=== PATIENT | female | born 1940 | race Two or more races ===

== ENCOUNTER 2019-05-14 08:48 | Inpatient (IN) | payer MEDICARE ==
[2019-05-14] MEDS ORDERED: IPRATROPIUM-ALBUTEROL 3 ML NEB INHALATION STA ×2 (08:54→11:33)
[2019-05-14] MEDS ORDERED: SODIUM CHLORIDE 0.9% 1,000 ML IV STA (08:54)
[2019-05-14] MEDS ORDERED: SODIUM CHLORIDE 0.9% 500 ML 500 ML IV STA ×2 (08:54→11:49)
--- NOTE | 2019-05-14 09:04 | ED ---
SOB HPI - General Stated Complaint: BUBBA Time Seen by Provider: 05/14/19 08:48 Source: patient, EMS, RN notes reviewed, old records reviewed Mode of arrival: EMS - History of Present Illness Initial Comments: This is a 78-year-old female history of COPD and recent diagnosis of lung cancer who presents by EMS with complaints of shortness of breath this started last evening and has gotten progressively worse. She also complains of cough with brown phlegm and pain everywhere. No overt fevers chills or sweats she states she's had decreased oral intake and feels very thirsty also. No other modifying factors at this time the patient is state that she get minimal relief with the nebulizer treatment given by paramedics. MD Complaint: shortness of breath, cough - Related Data Home Medications Medication Instructions Recorded Confirmed Acetaminophen [Tylenol Extra 1,000 mg PO Q4H PRN 05/14/19 05/14/19 Strength] Aspirin [Adult Low Dose Aspirin EC] 81 mg PO DAILY 05/14/19 05/14/19 Atorvastatin [Lipitor] 80 mg PO DAILY 05/14/19 05/14/19 Budesonide-Formot 160-4.5 Mcg 1 puff INHALATION RT-BID 05/14/19 05/14/19 [Symbicort 160-4.5 Mcg Inhaler] Calcium Carb-Vit D 250Mg-125Un 1 tab PO BID 05/14/19 05/14/19 [Oscal 250+D] HYDROcodone/APAP 5-325MG [[place] 1 tab PO BID PRN 05/14/19 05/14/19 5-325] Ipratropium-Albuterol Nebulize 3 ml INHALATION RT-TID 05/14/19 05/14/19 [Duoneb 0.5 mg-3 mg/3 ml Soln] Metoprolol Tartrate [Lopressor] 12.5 mg PO BID 05/14/19 05/14/19 Potassium Chloride ER [K-Dur 10] 10 meq PO DAILY 05/14/19 05/14/19 Sodium Bicarbonate Tab 650 mg PO BID 05/14/19 05/14/19 Torsemide [Demadex] 20 mg PO DAILY 05/14/19 05/14/19 guaiFENesin [Mucinex] 1,200 mg PO BID 05/14/19 05/14/19 Allergies Allergy/AdvReac Type Severity Reaction Status Date / Time No Known Allergies Allergy Verified 05/14/19 09:48 Review of Systems ROS Statement: Those systems with pertinent positive or pertinent negative responses have been documented in the HPI. ROS Other: All systems not noted in ROS Statement are negative. General Exam - General Exam Comments Initial Comments: This is a well-developed asthenic appearing female who is awake and alert oriented 3 Limitations: physical limitation General appearance: alert, anxious, in distress Head exam: Present: atraumatic, normocephalic, normal inspection Eye exam: Present: normal appearance, PERRL, EOMI. Absent: scleral icterus, conjunctival injection, periorbital swelling ENT exam: Present: mucous membranes dry Neck exam: Present: normal inspection, full ROM, other (No stridor JVD or bruits). Absent: tenderness, meningismus, lymphadenopathy Respiratory exam: Present: wheezes, decreased breath sounds. Absent: respiratory distress, rales, rhonchi, stridor Cardiovascular Exam: Present: regular rate, normal rhythm, normal heart sounds. Absent: systolic murmur, diastolic murmur, rubs, gallop, clicks GI/Abdominal exam: Present: soft, normal bowel sounds. Absent: distended, tenderness, guarding, rebound, rigid Extremities exam: Present: normal inspection, full ROM, normal capillary refill. Absent: tenderness, pedal edema, joint swelling, calf tenderness Back exam: Present: normal inspection Neurological exam: Present: alert, oriented X3, CN II-XII intact Psychiatric exam: Present: normal affect, normal mood Skin exam: Present: warm, dry, intact, normal color. Absent: rash Course Vital Signs 05/14/19 05/14/19 05/14/19 09:04 09:05 09:15 Temperature Pulse Rate 130 H 133 H 130 H Respiratory 24 Rate Blood Pressure O2 Sat by Pulse 90 L Oximetry 05/14/19 05/14/19 05/14/19 09:19 09:22 09:30 Temperature 98.9 F Pulse Rate 133 H 134 H Respiratory 26 H 26 H 24 Rate Blood Pressure 143/98 142/98 O2 Sat by Pulse 89 L 90 L Oximetry Medical Decision Making - Lab Data Result diagrams: 05/14/19 09:15 05/14/19 09:15 Lab Results 05/14/19 05/14/19 05/14/19 Range/Units 09:15 09:15 09:15 WBC 20.9 H (3.8-10.6) k/uL RBC 3.63 L (3.80-5.40) m/uL Hgb 9.9 L (11.4-16.0) gm/dL Hct 31.2 L (34.0-46.0) % MCV 86.0 (80.0-100.0) fL MCH 27.4 (25.0-35.0) pg MCHC 31.8 (31.0-37.0) g/dL RDW 17.8 H (11.5-15.5) % Plt Count 255 (150-450) k/uL Neutrophils % 78 % Lymphocytes % 16 % Monocytes % 4 % Eosinophils % 1 % Basophils % 0 % Neutrophils # 16.2 H (1.3-7.7) k/uL Lymphocytes # 3.4 (1.0-4.8) k/uL Monocytes # 0.8 (0-1.0) k/uL Eosinophils # 0.2 (0-0.7) k/uL Basophils # 0.0 (0-0.2) k/uL Poikilocytosis Slight Anisocytosis Slight PT (9.0-12.0) sec INR (<1.2) APTT (22.0-30.0) sec Sodium 135 L (137-145) mmol/L Potassium 4.7 (3.5-5.1) mmol/L Chloride 96 L (98-107) mmol/L Carbon Dioxide 25 (22-30) mmol/L Anion Gap 14 mmol/L BUN 82 H (7-17) mg/dL Creatinine 1.50 H (0.52-1.04) mg/dL Est GFR (CKD-EPI)AfAm 38 (>60 ml/min/1.73 sqM) Est GFR (CKD-EPI)NonAf 33 (>60 ml/min/1.73 sqM) Glucose 100 H (74-99) mg/dL Calcium 9.3 (8.4-10.2) mg/dL Magnesium 2.4 H (1.6-2.3) mg/dL Total Bilirubin 0.9 (0.2-1.3) mg/dL AST 79 H (14-36) U/L ALT 70 H (9-52) U/L Alkaline Phosphatase 83 (38-126) U/L Troponin I (0.000-0.034) ng/mL NT-Pro-B Natriuret Pep 3690 pg/mL Total Protein 6.2 L (6.3-8.2) g/dL Albumin 3.1 L (3.5-5.0) g/dL 05/14/19 05/14/19 Range/Units 09:15 09:15 WBC (3.8-10.6) k/uL RBC (3.80-5.40) m/uL Hgb (11.4-16.0) gm/dL Hct (34.0-46.0) % MCV (80.0-100.0) fL MCH (25.0-35.0) pg MCHC (31.0-37.0) g/dL RDW (11.5-15.5) % Plt Count (150-450) k/uL Neutrophils % % Lymphocytes % % Monocytes % % Eosinophils % % Basophils % % Neutrophils # (1.3-7.7) k/uL Lymphocytes # (1.0-4.8) k/uL Monocytes # (0-1.0) k/uL Eosinophils # (0-0.7) k/uL Basophils # (0-0.2) k/uL Poikilocytosis Anisocytosis PT 10.4 (9.0-12.0) sec INR 1.0 (<1.2) APTT 20.8 L (22.0-30.0) sec Sodium (137-145) mmol/L Potassium (3.5-5.1) mmol/L Chloride (98-107) mmol/L Carbon Dioxide (22-30) mmol/L Anion Gap mmol/L BUN (7-17) mg/dL Creatinine (0.52-1.04) mg/dL Est GFR (CKD-EPI)AfAm (>60 ml/min/1.73 sqM) Est GFR (CKD-EPI)NonAf (>60 ml/min/1.73 sqM) Glucose (74-99) mg/dL Calcium (8.4-10.2) mg/dL Magnesium (1.6-2.3) mg/dL Total Bilirubin (0.2-1.3) mg/dL AST (14-36) U/L ALT (9-52) U/L Alkaline Phosphatase (38-126) U/L Troponin I 0.237 H* (0.000-0.034) ng/mL NT-Pro-B Natriuret Pep pg/mL Total Protein (6.3-8.2) g/dL Albumin (3.5-5.0) g/dL - EKG Data -: EKG Interpreted by Me (Sinus tachycardia rate of 135 appear interval 134 QRS 80 QT since QTC ) Critical Care Time Critical Care Time: Yes Critical Care Time: 31 minutes of critical care time which includes initial presentation with history physical labs x-rays multiple reevaluation the patient discussed with patient family regarding the findings review of old charting that was available though there was some delay. Discussed with Dr. Cardozo admission orders and documentation of the above Disposition Clinical Impression: Adult respiratory distress syndrome, Cancer of left lung, CHF (congestive heart failure), Acute kidney injury, Elevated troponin Disposition: ADMITTED IP TO THIS [facility] Condition: Serious Referrals: None,Stated [Primary Care Provider] - 1-2 days
[2019-05-14 09:37] LABS: Anisocytosis Slight; Basophils % (A) 0 %; Eosinophils # (A) 0.2 k/uL (0-0.7); Eosinophils % (A) 1 %; HCT 31.2 % (34.0-46.0); HGB 9.9 gm/dL (11.4-16.0); Lymphocytes # (A) 3.4 k/uL (1.0-4.8); Lymphocytes % (A) 16 %; MCH 27.4 pg (25.0-35.0); MCHC 31.8 g/dL (31.0-37.0); Monocytes # (A) 0.8 k/uL (0-1.0); Monocytes % (A) 4 %; Neutrophils # (A) 16.2 k/uL (1.3-7.7); Neutrophils % (A) 78 %; Platelet Count 255 k/uL (150-450); Poikilocytosis Slight; RBC 3.63 m/uL (3.80-5.40); RDW 17.8 % (11.5-15.5); WBC 20.9 k/uL (3.8-10.6)
--- NOTE | 2019-05-14 09:41 | XR ---
EXAMINATION TYPE: XR chest 2V DATE OF EXAM: 05/14/2019 COMPARISON: Chest x-ray and CT chest April 28, 2019 HISTORY: Recent diagnosis of lung cancer with shortness of breath TECHNIQUE: Frontal and lateral views of the chest are obtained. FINDINGS: There is now completely opacified left hemithorax without mediastinal shift. There is like ly endobronchial occlusion due to central left lung neoplasm progression . Background chronic emphyse matous change and right lung. Cardiac margins are silhouetted. The osseous structures are intact. IMPRESSION: Complete opacification of left hemithorax likely from central left lung neoplastic progr ession causing endobronchial occlusion.
[2019-05-14 09:48] LABS: Albumin 3.1 g/dL (3.5-5.0); Calcium 9.3 mg/dL (8.4-10.2); Magnesium 2.4 mg/dL (1.6-2.3); Potassium 4.7 mmol/L (3.5-5.1); Total Bilirubin 0.9 mg/dL (0.2-1.3); Total Protein 6.2 g/dL (6.3-8.2)
[2019-05-14 10:02] LABS: Prothrombin Time 10.4 sec (9.0-12.0)
[2019-05-14 10:13] LABS: Partial Thromboplastin Time 20.8 sec (22.0-30.0)
[2019-05-14] MEDS ORDERED: HEPARIN SODIUM,PORCINE 5,000 UNIT/ML 1 ML VIAL IV ONE (11:44)
[2019-05-14] MEDS ORDERED: NITROGLYCERIN SL TABS 0.4 MG TAB SUBLINGUAL PRN (11:44)
[2019-05-14] MEDS ORDERED: ACETAMINOPHEN TAB 500 MG TAB PO PRN (11:47)
[2019-05-14] MEDS ORDERED: FUROSEMIDE 10 MG/ML 4 ML VIAL IV STA (11:48)
[2019-05-14] MEDS: HYDROcodone/APAP 5-325MG 1 EACH TAB PO PRN (12:10)
[2019-05-14] MEDS: HEPARIN SOD,PORK IN 0.45% NACL 25,000 UNIT in 0.45% NACL 1 250ML.BAG IV SCH (12:14)
[2019-05-14] MEDS: IPRATROPIUM-ALBUTEROL 3 ML NEB INHALATION SCH ×3 (12:37→19:52)
[2019-05-14] MEDS ORDERED: DILTIAZEM DRIP BOLUS FROM BAG 1 MG SOLN IV ONE ×2 (12:52)
[2019-05-14] MEDS ORDERED: DILTIAZEM 125 MG in SODIUM CHLORIDE 0.9% 100 ML IV SCH (13:15)
--- NOTE | 2019-05-14 13:26 | P.CNPUL ---
History of Present Illness Consult date: 05/14/19 Requesting physician: Nawaf Cardozo Reason for consult: pleural effusion, other (Lung cancer) Chief complaint: Shortness of breath History of present illness: This is a 79-year-old female, familiar to our service, she was seen by Dr. Hollis last on 04/27/2019, patient presented at the time with cough, shortness of breath, pleural effusion, and abnormal CT of the chest. Patient underwent thoracentesis of the left pleural effusion, she underwent a bronchoscopy and endobronchial biopsy of left lower lobe endobronchial tumor, and the diagnosis was confirmed as adenocarcinoma. Patient was referred to see the oncologist, and her appointment is pending. She was also supposed to see Dr. Hollis in the office however she was notified over the phone about her diagnosis and about the plans to refer her to oncology. Patient has not been seen by oncology yet. Patient came into the ER complaining of increased shortness of breath, which has been progressively worse since her last admission. Upon evaluation in the ER, her left lung was noted to be completely opacified. And based on the clinical history and based on the chest x-ray, I believe the patient clearly has opacification of the left lung secondary to endobronchial tumor involving the left lower lobe bronchus, and good sized left pleural effusion which is suspected. Ultrasound is pending, however patient is refusing to have tho racentesis if ultrasound shows enough fluid to be drained. Apparently she had significant amount of discomfort during her last thoracentesis and at the end of the procedure she developed significant pain and discomfort in the left chest. While in the ER, and before transferring the patient to the floor, she developed an episode of atrial fibrillation with RVR, her labs showed evidence of leukocy tosis with WBC count of 20.9 hemoglobin 9.9. Electrolytes were normal BUN however was 82 creatinine 1.50, BNP level was 3700, and her troponin was noted to be elevated at 0.237. Cardiology was consulted, and consultation is pending. I evaluated the patient in the ER, discussed her condition with all her family members at bedside, patient clearly refuses to have thoracentesis and I did go ahead and recommended ultrasound to be done. She may or may not require repeat bronchoscopy early next week. Review of Systems Constitutional: Denies chills, Denies fever Eyes: denies blurred vision, denies pain Ears, nose, mouth and throat: Denies headache, Denies sore throat Cardiovascular: Denies chest pain, however she complains of shortness of breath. And some vague left-sided chest discomfort. Respiratory: Reports cough with sputum, Reports dyspnea, Reports home oxygen, Reports wheezing, intermittent occasional cough. Gastrointestinal: Denies abdominal pain, Denies diarrhea, Denies nausea, Denies vomiting Genitourinary: Denies dysuria, Denies hematuria Musculoskeletal: Denies myalgias Musculoskeletal: right: hip pain, secondary to severe osteoarthritis of the right hip, surgery could not be done because of her multiple medical problems and complications. Integumentary: Denies pruritus, Denies rash Neurological: Denies numbness, Denies weakness Psychiatric: Denies anxiety, Denies depression Endocrine: Denies fatigue, Denies weight change Past Medical History Past Medical History: Heart Failure, Hyperlipidemia, Hypertension, Myocardial Infarction ([place]) Additional Past Medical History / Comment(s): Lung Cancer History of Any Multi-Drug Resistant Organisms: None Reported Past Surgical History: Heart Catheterization, Heart Catheterization With Stent Past Psychological History: No Psychological Hx Reported Smoking Status: Current every day smoker Past Alcohol Use History: None Reported Past Drug Use History: None Reported Medications and Allergies Home Medications Medication Instructions Recorded Confirmed Type Acetaminophen [Tylenol Extra 1,000 mg PO Q4H PRN 05/14/19 05/14/19 History Strength] Aspirin [Adult Low Dose Aspirin EC] 81 mg PO DAILY 05/14/19 05/14/19 History Atorvastatin [Lipitor] 80 mg PO DAILY 05/14/19 05/14/19 History Budesonide-Formot 160-4.5 Mcg 1 puff INHALATION RT-BID 05/14/19 05/14/19 History [Symbicort 160-4.5 Mcg Inhaler] Calcium Carb-Vit D 250Mg-125Un 1 tab PO BID 05/14/19 05/14/19 History [Oscal 250+D] HYDROcodone/APAP 5-325MG [[place] 1 tab PO BID PRN 05/14/19 05/14/19 History 5-325] Ipratropium-Albuterol Nebulize 3 ml INHALATION RT-TID 05/14/19 05/14/19 History [Duoneb 0.5 mg-3 mg/3 ml Soln] Metoprolol Tartrate [Lopressor] 12.5 mg PO BID 05/14/19 05/14/19 History Potassium Chloride ER [K-Dur 10] 10 meq PO DAILY 05/14/19 05/14/19 History Sodium Bicarbonate Tab 650 mg PO BID 05/14/19 05/14/19 History Torsemide [Demadex] 20 mg PO DAILY 05/14/19 05/14/19 History guaiFENesin [Mucinex] 1,200 mg PO BID 05/14/19 05/14/19 History Allergies Allergy/AdvReac Type Severity Reaction Status Date / Time No Known Allergies Allergy Verified 05/14/19 09:48 Physical Exam Vitals: Vital Signs Temp Pulse Resp BP Pulse Ox 05/14/19 12:18 137 H 05/14/19 12:03 134 H 05/14/19 11:44 98.1 F 135 H 24 167/74 92 L 05/14/19 09:30 134 H 24 142/98 90 L 05/14/19 09:22 26 H 05/14/19 09:19 98.9 F 133 H 26 H 143/98 89 L 05/14/19 09:15 130 H 05/14/19 09:05 133 H 05/14/19 09:04 130 H 24 90 L Intake and Output 05/13/19 05/14/19 05/14/19 22:59 06:59 14:59 Other: Weight 59.874 kg GENERAL EXAM: Alert, pleasant, 79-year-old white female on 2 L of oxygen with a pulse ox of 98%, comfortable in no apparent distress. HEAD: Normocephalic/atraumatic. EYES: Normal reaction of pupils, equal size. Conjunctiva pink, sclera white. NOSE: Clear with pink turbinates. THROAT: No erythema or exudates. NECK: No masses, no JVD, no thyroid enlargement, no adenopathy. CHEST: No chest wall deformity. Symmetrical expansion. LUNGS: Diminished breath sound on the left side, clear breath sounds on the right side, no rhonchi no wheezes. Dullness on the left side noted. CVS: Tachycardic,, normal S1 and S2, no gallops, no murmurs, no rubs ABDOMEN: Soft, nontender. No hepatosplenomegaly, normal bowel sounds, no guarding or rigidity. EXTREMITIES: No clubbing, no edema, no cyanosis, 2+ pulses and upper and lower extremities. MUSCULOSKELETAL: Muscle strength and tone normal. SPINE: No scoliosis or deformity SKIN: No rashes CENTRAL NERVOUS SYSTEM: Alert and oriented -3. No focal deficits, tone is normal in all 4 extremities. PSYCHIATRIC: Alert and oriented -3. Appropriate affect. Intact judgment and insight. Results - Laboratory Findings CBC and BMP: 05/14/19 09:15 05/14/19 09:15 PT/INR, D-dimer PT 10.4 sec (9.0-12.0) 05/14/19 09:15 INR 1.0 (<1.2) 05/14/19 09:15 Abnormal lab findings: Abnormal Labs 05/14/19 05/14/19 05/14/19 09:15 09:15 09:15 WBC 20.9 H RBC 3.63 L Hgb 9.9 L Hct 31.2 L RDW 17.8 H Neutrophils # 16.2 H APTT 20.8 L Sodium 135 L Chloride 96 L BUN 82 H Creatinine 1.50 H Glucose 100 H Magnesium 2.4 H AST 79 H ALT 70 H Troponin I Total Protein 6.2 L Albumin 3.1 L 05/14/19 09:15 WBC RBC Hgb Hct RDW Neutrophils # APTT Sodium Chloride BUN Creatinine Glucose Magnesium AST ALT Troponin I 0.237 H* Total Protein Albumin - Diagnostic Findings Chest x-ray: image reviewed (Chest x-ray showed complete opacification of the left hemithorax, most likely secondary to central left lung mass and progression of endobronchial occlusion. Pleural effusion is not entirely ruled out.) Assessment and Plan Assessment: Impression: 1 complete opacification of the left lung secondary to progression of endobronchial tumor involving left lower lobe and malignant left-sided pleural effusion. 2 history of underlying COPD, presently inactive. 3. Pre-Renal azotemia, most likely secondary to diuretics. 4 new-onset atrial fibrillation with RVR, being addressed by cardiology on the case 5 known history of coronary artery disease with previous stenting of the circumflex artery. 6 ex-smoker, quit smoking 4 months ago. 7 severe osteoarthritis of both hips 8 possible non-ST elevation myocardial infarction Recommendation: Continue present treatment plan, will arrange for ultrasound of the chest, I suggested thoracentesis if significant amount of fluid is noted on the left side however the patient declines thoracentesis. In the meantime address her cardiac arrhythmia, patient will likely need to be on Cardizem drip at present, continue updrafts, continue all her cardiac meds, and beta blockers, cut down on the diuretics, continue IV fluid at 75 mL/h, continue heparin, will follow. Discussed her condition with her and all her family members including daughters and son at bedside. Prognosis is clearly poor and guarded considering her recent diagnosis of bronchogenic carcinoma and pleural effusion. Oncology will be consulted to see the patient. We'll continue to follow repeat chest x- ray in a.m. Time with Patient: Greater than 30
--- NOTE | 2019-05-14 13:49 | US ---
EXAMINATION TYPE: US chest DATE OF EXAM: 05/14/2019 COMPARISON: US, CT, chest x ray CLINICAL HISTORY: Markings for thoracentesis by pulmonary staff. TECHNIQUE: Targeted ultrasound of the posterior bilateral hemithoraces EXAM MEASUREMENTS: Right Pleural Effusion pocket size: 1.6 cm A/P Left Pleural Effusion pocket size: 4.8 cm A/P free fluid area in multiseptated fluid pocket. Left skin surface to fluid distance: 3.1 cm A/P Left side was marked for possible thoracentesis outside the dept. Pulmonologists are able to review the images in the patient?s EMR. IMPRESSIONS: 1. Suspected loculated pleural effusion left side. 2. Minimal right pleural effusion is
[2019-05-14] MEDS: SYMBICORT 160-4.5 MCG INHALER INHALATION SCH (20:07)
[2019-05-14] MEDS: SODIUM BICARBONATE TAB 650 MG TAB PO SCH (20:35)
[2019-05-14] MEDS: METOPROLOL TARTRATE 12.5 MG TAB PO SCH (20:35)
[2019-05-14] MEDS: guaiFENesin 600 MG TABLET.ER PO SCH (20:35)
[2019-05-14] MEDS: CALCIUM CARB-VIT D 250MG-125UN 1 EACH TAB PO SCH (20:35)
--- NOTE | 2019-05-14 22:58 | P.HPIM ---
History of Present Illness H&P Date: 05/14/19 Chief Complaint: Short of breath Chief Complaint: Short of breath History of presenting complaint: This is a pleasant 79-year-old patient of Dr. agarwal from [place]. Patient was recently in the hospital discharged on April 10. Patient was then admitted for COPD exacerbation being a smoker and CHF exacerbation. EF is 60-65%. Chronic stable medical conditions include hypertensive heart disease, coronary artery disease with stent, hypertension, and osteoarthritis. Patient recently was due to get orthopedic surgery but this was postponed. Patient on the last admission was found to have left pleural effusion that was tapped. 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 Patient is awaiting to see oncology. Patient now presents with worsening short of breath and poor appetite and weight loss congested cough. Significant a short of breath at rest. Review of systems: GEN.: Weak tired, weight loss, loss of appetite EYES: None HEENT: Decreased hearing NECK: None RESPIRATORY: As above CARDIOVASCULAR: As above GASTROINTESTINAL: None GENITOURINARY: None MUSCULOSKELETAL: Pain in some joints] LYMPHATICS: None HEMATOLOGICAL: None PSYCHIATRY: None NEUROLOGICAL: Occasional forgetful Past medical history: Includes CHF with EF of 60-65%, hypertensive heart disease, COPD, coronary artery disease with a prior history of stent, hypertension, osteoarthritis. 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 Boyfriend lives with her. Does use a walker. Family history: Colon cancer Physical examination: VITAL SIGNS: 98.9, 119, 18, 124/61, 99% on 4 L GENERAL: BMI 24.1, laying in bed, tired, short of breath at rest. EYES: Pupils equal. Conjunctiva normal. HEENT: External appearance of nose and ears normal, oral cavity grossly normal. Decreased hearing NECK: JVD unable to assess; masses not palpable. HEART: Heart sounds irregular; no edema. LUNGS: Respiratory rate increased, bilateral inspiratory and expiratory crackles , audible and some wheezing ABDOMEN: Soft, nontender, liver spleen not palpable, no masses palpable. LYMPHATICS: No lymph nodes palpable in the axilla and neck. PSYCH: Alert and oriented x3; mood and affect anxious. NEUROLOGICAL: Cranial nerves grossly intact; no facial asymmetry, power and sensation grossly intact MUSCULAR skeletal: Evidence of osteoarthritis in the hands Investigations: White count 20.9, hemoglobin 9.9, platelets 255, potassium 4.7, BUN 82, creatinine 1.50 Troponin 0.2, 0.3, 0.2 ProBNP 3690 Patient's BUN/creatinine was 99/1.97 on April 30 EKG tracing personally reviewed by me shows sinus tachycardia Checks x-ray film personally reviewed by me shows near whiteout of the left side Assessment: -Worsening Large left pleural effusion from underlying adenocarcinoma,, causing near whiteout of the left side -Acute hypoxic respiratory failure from above -Chronic congestive heart failure from diastolic dysfunction EF 60-65% -Hypertensive heart disease -Acute COPD exacerbation in an ex-smoker -Coronary artery disease with prior history of stent -Advanced primary osteoarthritis -Medical debility from underlying malignancy and multiple comorbidities -Chronic kidney disease suspect underlying nephrosclerosis, stage III -Sinus tachycardia multifactorial -Troponin leak from hemodynamic mismatch, doubt acute coronary syndrome Plan: Dr. Sanders from pulmonary was consulted patient will need a repeat thoracentesis. Patient also may be a candidate for Pleurx catheter. In the meantime patient has been waiting to get oncology opinion we'll have them see the patient while she is here. Given a very poor functional status does seem to be not a very good candidate for any intervention. We'll add oncology make the decision about the same. Care was discussed the patient and significant other the bedside. Questions were answered. Oxygen being supplemented. On the home medications were resumed. Past Medical History Past Medical History: Heart Failure, Hyperlipidemia, Hypertension, Myocardial Infarction ([place]) Additional Past Medical History / Comment(s): Lung Cancer Last Myocardial Infarction Date:: 2015 History of Any Multi-Drug Resistant Organisms: None Reported Past Surgical History: Heart Catheterization, Heart Catheterization With Stent Past Anesthesia/Blood Transfusion Reactions: No Reported Reaction Date of Last Stent Placement:: 2015 Past Psychological History: No Psychological Hx Reported Smoking Status: Current every day smoker Past Alcohol Use History: None Reported Past Drug Use History: None Reported - Past Family History Father Additional Family Medical History / Comment(s): pulmonary disease Mother Family Medical History: Cancer Additional Family Medical History / Comment(s): colon cancer Medications and Allergies Home Medications Medication Instructions Recorded Confirmed Type Acetaminophen [Tylenol Extra 1,000 mg PO Q4H PRN 05/14/19 05/14/19 History Strength] Aspirin [Adult Low Dose Aspirin EC] 81 mg PO DAILY 05/14/19 05/14/19 History Atorvastatin [Lipitor] 80 mg PO DAILY 05/14/19 05/14/19 History Budesonide-Formot 160-4.5 Mcg 1 puff INHALATION RT-BID 05/14/19 05/14/19 History [Symbicort 160-4.5 Mcg Inhaler] Calcium Carb-Vit D 250Mg-125Un 1 tab PO BID 05/14/19 05/14/19 History [Oscal 250+D] HYDROcodone/APAP 5-325MG [[place] 1 tab PO BID PRN 05/14/19 05/14/19 History 5-325] Ipratropium-Albuterol Nebulize 3 ml INHALATION RT-TID 05/14/19 05/14/19 History [Duoneb 0.5 mg-3 mg/3 ml Soln] Metoprolol Tartrate [Lopressor] 12.5 mg PO BID 05/14/19 05/14/19 History Potassium Chloride ER [K-Dur 10] 10 meq PO DAILY 05/14/19 05/14/19 History Sodium Bicarbonate Tab 650 mg PO BID 05/14/19 05/14/19 History Torsemide [Demadex] 20 mg PO DAILY 05/14/19 05/14/19 History guaiFENesin [Mucinex] 1,200 mg PO BID 05/14/19 05/14/19 History Allergies Allergy/AdvReac Type Severity Reaction Status Date / Time No Known Allergies Allergy Verified 05/14/19 09:48 Physical Exam Vitals: Vital Signs Temp Pulse Pulse Resp BP BP Pulse Ox 05/14/19 20:03 116 H 05/14/19 19:52 107 H 16 05/14/19 19:30 98.9 F 119 H 22 124/61 99 05/14/19 15:51 120 H 20 05/14/19 15:37 118 H 22 92 L 05/14/19 15:07 129 H 22 05/14/19 14:00 98.3 F 129 H 20 140/63 98 05/14/19 12:18 137 H 05/14/19 12:03 134 H 05/14/19 11:44 98.1 F 135 H 24 167/74 92 L 05/14/19 09:30 134 H 24 142/98 90 L 05/14/19 09:22 26 H 05/14/19 09:19 98.9 F 133 H 26 H 143/98 89 L 05/14/19 09:15 130 H 05/14/19 09:05 133 H 05/14/19 09:04 130 H 24 90 L Intake and Output 05/14/19 05/14/19 05/14/19 06:59 14:59 22:59 Intake Total 46.703 Balance 46.703 Intake: Intake, IV Titration 46.703 Amount Heparin Sod,Pork in 0.45% 46.703 NaCl 25,000 unit In 0.45 % NaCl 1 250ml.bag @ 12 UNITS/KG/HR 7.185 mls/hr IV .Q[facility]H [facility] Rx#: [id number] Other: Voiding Method Bedpan Weight 59.874 kg Results CBC & Chem 7: 05/14/19 09:15 05/14/19 09:15 Labs: Abnormal Lab Results - Last 24 Hours (Table) 05/14/19 05/14/19 05/14/19 Range/Units 09:15 09:15 09:15 WBC 20.9 H (3.8-10.6) k/uL RBC 3.63 L (3.80-5.40) m/uL Hgb 9.9 L (11.4-16.0) gm/dL Hct 31.2 L (34.0-46.0) % RDW 17.8 H (11.5-15.5) % Neutrophils # 16.2 H (1.3-7.7) k/uL APTT 20.8 L (22.0-30.0) sec Sodium 135 L (137-145) mmol/L Chloride 96 L (98-107) mmol/L BUN 82 H (7-17) mg/dL Creatinine 1.50 H (0.52-1.04) mg/dL Glucose 100 H (74-99) mg/dL Magnesium 2.4 H (1.6-2.3) mg/dL AST 79 H (14-36) U/L ALT 70 H (9-52) U/L Troponin I (0.000-0.034) ng/mL Total Protein 6.2 L (6.3-8.2) g/dL Albumin 3.1 L (3.5-5.0) g/dL 05/14/19 05/14/1905/14/19 Range/Units 09:15 15:12 18:01 WBC (3.8-10.6) k/uL RBC (3.80-5.40) m/uL Hgb (11.4-16.0) gm/dL Hct (34.0-46.0) % RDW (11.5-15.5) % Neutrophils # (1.3-7.7) k/uL APTT 42.1 H (22.0-30.0) sec Sodium (137-145) mmol/L Chloride (98-107) mmol/L BUN (7-17) mg/dL Creatinine (0.52-1.04) mg/dL Glucose (74-99) mg/dL Magnesium (1.6-2.3) mg/dL AST (14-36) U/L ALT (9-52) U/L Troponin I 0.237 H* 0.305 H* (0.000-0.034) ng/mL Total Protein (6.3-8.2) g/dL Albumin (3.5-5.0) g/dL 05/14/19 Range/Units 20:49 WBC (3.8-10.6) k/uL RBC (3.80-5.40) m/uL Hgb (11.4-16.0) gm/dL Hct (34.0-46.0) % RDW (11.5-15.5) % Neutrophils # (1.3-7.7) k/uL APTT (22.0-30.0) sec Sodium (137-145) mmol/L Chloride (98-107) mmol/L BUN (7-17) mg/dL Creatinine (0.52-1.04) mg/dL Glucose (74-99) mg/dL Magnesium (1.6-2.3) mg/dL AST (14-36) U/L ALT (9-52) U/L Troponin I 0.292 H* (0.000-0.034) ng/mL Total Protein (6.3-8.2) g/dL Albumin (3.5-5.0) g/dL Thrombosis Risk Factor Assmnt - Choose All That Apply Each Factor Represents 1 point: Heart failure (<1month) Each Risk Factor Represents 3 Points: Age 75 years or older Thrombosis Risk Factor Assessment Total Risk Factor Score: 4 Thrombosis Risk Factor Assessment Level: Moderate Risk
[2019-05-15] MEDS: IPRATROPIUM-ALBUTEROL 3 ML NEB INHALATION SCH ×7 (00:10→23:30)
[2019-05-15] MEDS ORDERED: FUROSEMIDE 10 MG/ML 4 ML VIAL IV STA ×2 (00:49→00:50)
[2019-05-15 01:50] LABS: Cholesterol 141 mg/dL (<200); HDL Cholesterol 45 mg/dL (40-60); LDL Cholesterol,Calculated 45 mg/dL (0-99); Triglycerides 257 mg/dL (<150)
[2019-05-15] MEDS: SODIUM BICARBONATE TAB 650 MG TAB PO SCH ×2 (07:55→20:42)
[2019-05-15] MEDS: guaiFENesin 600 MG TABLET.ER PO SCH ×2 (07:55→20:41)
[2019-05-15] MEDS: ATORVASTATIN 80 MG TAB PO SCH (07:55)
[2019-05-15] MEDS: ASPIRIN 81 MG PO SCH (07:55)
[2019-05-15] MEDS: METOPROLOL TARTRATE 12.5 MG TAB PO SCH (07:56)
[2019-05-15] MEDS: CALCIUM CARB-VIT D 250MG-125UN 1 EACH TAB PO SCH ×2 (07:56→20:19)
[2019-05-15] MEDS: POTASSIUM CHLORIDE ER 10 MEQ TAB.ER.PRT PO SCH (07:56)
[2019-05-15] MEDS: TORSEMIDE 20 MG TAB PO SCH (08:17)
[2019-05-15] MEDS ORDERED: ASPIRIN 325 MG TAB PO SCH (09:00)
--- NOTE | 2019-05-15 12:01 | P.CRDCN ---
History of Present Illness History of present illness: see full dictation by Maisha Don Minimally abnormal troponins likely secondary to respiratory distress/hypoxemia likely demand ischemia, likely type II myocardial infarction Flat trend 0.23, 0.3, 0.29 of troponins Continue aspirin and statins and increase beta blockers Stop diltiazem IV Patient being evaluated and treated for malignancy We'll sign off. No further cardiac evaluation indicated at this point From a cardiac standpoint/abnormal trops, heparin may be discontinued. I also asked the nurse to contact the primary attending for need for heparin related to underlying malignancy, shortness of breath, brief episode of atrial fibrillation and sinus tachycardia Past Medical History Past Medical History: Heart Failure, Hyperlipidemia, Hypertension, Myocardial Infarction ([place]) Additional Past Medical History / Comment(s): Lung Cancer Last Myocardial Infarction Date:: 2015 History of Any Multi-Drug Resistant Organisms: None Reported Past Surgical History: Heart Catheterization, Heart Catheterization With Stent Past Anesthesia/Blood Transfusion Reactions: No Reported Reaction Date of Last Stent Placement:: 2015 Past Psychological History: No Psychological Hx Reported Smoking Status: Current every day smoker Past Alcohol Use History: None Reported Past Drug Use History: None Reported - Past Family History Father Additional Family Medical History / Comment(s): pulmonary disease Mother Family Medical History: Cancer Additional Family Medical History / Comment(s): colon cancer Medications and Allergies Home Medications Medication Instructions Recorded Confirmed Type Acetaminophen [Tylenol Extra 1,000 mg PO Q4H PRN 05/14/19 05/14/19 History Strength] Aspirin [Adult Low Dose Aspirin EC] 81 mg PO DAILY 05/14/19 05/14/19 History Atorvastatin [Lipitor] 80 mg PO DAILY 05/14/19 05/14/19 History Budesonide-Formot 160-4.5 Mcg 1 puff INHALATION RT-BID 05/14/19 05/14/19 History [Symbicort 160-4.5 Mcg Inhaler] Calcium Carb-Vit D 250Mg-125Un 1 tab PO BID 05/14/19 05/14/19 History [Oscal 250+D] HYDROcodone/APAP 5-325MG [[place] 1 tab PO BID PRN 05/14/19 05/14/19 History 5-325] Ipratropium-Albuterol Nebulize 3 ml INHALATION RT-TID 05/14/19 05/14/19 History [Duoneb 0.5 mg-3 mg/3 ml Soln] Metoprolol Tartrate [Lopressor] 12.5 mg PO BID 05/14/19 05/14/19 History Potassium Chloride ER [K-Dur 10] 10 meq PO DAILY 05/14/19 05/14/19 History Sodium Bicarbonate Tab 650 mg PO BID 05/14/19 05/14/19 History Torsemide [Demadex] 20 mg PO DAILY 05/14/19 05/14/19 History guaiFENesin [Mucinex] 1,200 mg PO BID 05/14/19 05/14/19 History Allergies Allergy/AdvReac Type Severity Reaction Status Date / Time No Known Allergies Allergy Verified 05/14/19 09:48 Physical Exam Vitals: Vital Signs Temp Pulse Pulse Resp BP Pulse Ox 05/15/19 11:35 99.5 F 97 32 H 100/55 98 05/15/19 08:42 116 H 05/15/19 08:29 120 H 05/15/19 08:00 98.1 F 119 H 30 H 112/65 90 L 05/15/19 04:00 97.6 F 109 H 22 97/61 97 05/15/19 03:41 99 05/15/19 03:35 97 05/15/19 03:05 22 05/15/19 00:59 30 H 05/15/19 00:26 95 05/15/19 00:11 95 05/14/19 23:33 98 F 91 22 132/63 93 L 05/14/19 20:03 116 H 05/14/19 19:52 107 H 16 05/14/19 19:30 98.9 F 119 H 22 124/61 99 05/14/19 15:51 120 H 20 05/14/19 15:37 118 H 22 92 L 05/14/19 15:07 129 H 22 05/14/19 14:00 98.3 F 129 H 20 140/63 98 05/14/19 12:18 137 H 05/14/19 12:03 134 H Intake and Output 05/14/19 05/15/19 05/15/19 22:59 06:59 14:59 Intake Total 46.703 125 Balance 46.703 125 Intake: Intake, IV Titration 46.703 25 Amount Diltiazem 125 mg In 25 Sodium Chloride 0.9% 100 ml @ 5 MG/HR 5 mls/hr IV .Q24H [facility] Rx#:[id number] Heparin Sod,Pork in 0.45% 46.703 NaCl 25,000 unit In 0.45 % NaCl 1 250ml.bag @ 12 UNITS/KG/HR 7.185 mls/hr IV .Q24H [facility] Rx#: [id number] Oral 100 Other: Voiding Method Bedpan Indwelling Catheter Indwelling Catheter Weight 59.874 kg Results 05/14/19 09:15 05/14/19 09:15 Cardiac Enzymes 05/14/19 05/14/19 Range/Units 15:12 20:49 Troponin I 0.305 H* 0.292 H* (0.000-0.034) ng/mL Coagulation 05/14/19 05/15/19 Range/Units 18:01 00:02 APTT 42.1 H 53.3 H (22.0-30.0) sec Lipids 05/14/19 Range/Units 09:15 Triglycerides 257 H (<150) mg/dL Cholesterol 141 (<200) mg/dL HDL Cholesterol 45 (40-60) mg/dL Current Medications Generic Name Dose Route Start Last Admin Trade Name Freq PRN Reason Stop Dose Admin Acetaminophen 1,000 mg 05/14/19 11:47 05/14/19 18:07 Tylenol Tab PO 1,000 mg Q4H PRN Administration Pain Hydrocodone Bitart/Acetaminophen 1 each 05/14/19 11:47 05/14/19 12:10 [place] 5-325 PO 1 each BID PRN Administration Pain Albuterol/Ipratropium 3 ml 05/14/19 12:00 05/15/19 08:26 Duoneb 0.5 Mg-3 Mg/3 Ml Soln INHALATION 3 ml RT-Q4H [facility] Administration Aspirin 81 mg 05/15/19 09:00 05/15/19 07:55 Aspirin PO 81 mg DAILY [facility] Administration Atorvastatin Calcium 80 mg 05/15/19 09:00 05/15/19 07:55 Lipitor PO 80 mg DAILY [facility] Administration Budesonide/Formoterol Fumarate 1 puff 05/14/19 20:00 05/14/19 20:07 Symbicort 160-4.5 Mcg Inhaler INHALATION 1 puff RT-BID [facility] Administration Calcium Carbonate 1 each 05/14/19 21:00 05/15/19 07:56 Oscal 250+D PO 1 each BID [facility] Administration Guaifenesin 1,200 mg 05/14/19 21:00 05/15/19 07:55 Mucinex PO 1,200 mg BID [facility] Administration Heparin Sodium/Sodium Chloride 250 mls @ 7.185 mls/hr 05/14/19 11:45 05/14/19 18:44 25,000 unit/ Sodium Chloride IV 14 units/kg/hr .Q24H [facility] 8.382 mls/hr Titration Protocol 12 UNITS/KG/HR Metoprolol Tartrate 25 mg 05/15/19 21:00 Lopressor PO BID [facility] Nitroglycerin 0.4 mg 05/14/19 11:44 Nitrostat SUBLINGUAL Q5M PRN Chest Pain Potassium Chloride 10 meq 05/15/19 09:00 05/15/19 07:56 K-Dur 10 PO 10 meq DAILY [facility] Administration Sodium Bicarbonate 650 mg 05/14/19 21:00 05/15/19 07:55 Sodium Bicarbonate Tab PO 650 mg BID [facility] Administration Torsemide 20 mg 05/15/19 09:00 05/15/19 08:17 Demadex PO 20 mg DAILY [facility] Administration Intake and Output 05/14/19 05/15/19 05/15/19 22:59 06:59 14:59 Intake Total 46.703 125 Balance 46.703 125 Intake: Intake, IV Titration 46.703 25 Amount Diltiazem 125 mg In 25 Sodium Chloride 0.9% 100 ml @ 5 MG/HR 5 mls/hr IV .Q24H [facility] Rx#:[id number] Heparin Sod,Pork in 0.45% 46.703 NaCl 25,000 unit In 0.45 % NaCl 1 250ml.bag @ 12 UNITS/KG/HR 7.185 mls/hr IV .Q24H [facility] Rx#: [id number] Oral 100 Other: Voiding Method Bedpan Indwelling Catheter Indwelling Catheter Weight 59.874 kg Patient Weight 05/16/19 06:59 Weight 59.874 kg 05/14/19 09:15 05/14/19 09:15
--- NOTE | 2019-05-15 12:07 | P.CONS ---
History of Present Illness - Reason for Consult Consult date: 05/15/19 Malignant pleural effusion, metastatic lung cancer - History of Present Illness The patient is a 79-year-old white female, in fairly good health at baseline. About 5-6 months ago the patient had developed pain in the right hip, which became progressively worse. She had treatment with physical therapy with only partial improvement followed by subsequent progression. According to the family due to hip pain the patient's mobility decreased, along with decrease in overall strength and appetite. She did lose weight which they attributed to the same. Due to progression of symptoms, it was decided by orthopedic surgery to proceed with surgical intervention. While undergoing preop workup, she was admitted on 04/04/19 with shortness of breath. At that time she appeared to have COPD exacerbation, possible left lower lobe pneumonia and small left pleural effusion. She was also noted to have acute kidney injury with subsequent improvement. The patient did improve with treatment and was discharged but was readmitted in late 04/20 with recurrent shortness of breath. At this time she was found to have recurrent, more marked, pleural effusion. Computed tomography scan at that time appeared to show obstructive pathology in the left lower lobe as well as a 1.2 cm left suprahilar nodule in addition to left-sided pleural effusion causing collapse of the left lower lobe. The patient had a bronchoscopy on 04/29/19, revealing decreased luminal size and abnormal mucosa in the left lower lobe bronchus. Transbronchial biopsy was positive for adenocarcinoma consistent with pulmonary origin. Cytology from the pleural fluid from 04/28/19 showed the same pathology. The patient did improve significantly with drainage of the pleural effusion and was able to discharge. She was seen as an outpatient by pulmonary medicine and referral Center our office. However before the patient could be seen, she was readmitted to the hospital this time with progressive shortness of breath over the last 3-4 days. Chest x-ray revealed recurrent left-sided pleural effusion. She was therefore admitted for further management. There is no prior history of malignancy. The patient has a long-standing history of smoking and quit about 4 months ago. Review of Systems Constitutional: Reports poor appetite, Reports weakness, Reports weight loss Eyes: denies blurred vision, denies pain Ears: deny: decreased hearing, ear discharge, earache, tinnitus Ears, nose, mouth and throat: Denies headache, Denies sore throat Cardiovascular: Reports shortness of breath Respiratory: Reports dyspnea Gastrointestinal: Denies abdominal pain, Denies diarrhea, Denies nausea, Denies vomiting Genitourinary: Denies dysuria, Denies hematuria Menstruation: Reports postmenopausal Musculoskeletal: Reports muscle weakness Integumentary: Denies pruritus, Denies rash Neurological: Reports weakness Psychiatric: Denies anxiety, Denies depression Endocrine: Reports fatigue, Reports weight change Hematologic/Lymphatic: Reports as per HPI Past Medical History Past Medical History: Heart Failure, Hyperlipidemia, Hypertension, Myocardial Infarction ([place]) Additional Past Medical History / Comment(s): Lung Cancer Last Myocardial Infarction Date:: 2015 History of Any Multi-Drug Resistant Organisms: None Reported Past Surgical History: Heart Catheterization, Heart Catheterization With Stent Past Anesthesia/Blood Transfusion Reactions: No Reported Reaction Date of Last Stent Placement:: 2015 Past Psychological History: No Psychological Hx Reported Smoking Status: Current every day smoker Past Alcohol Use History: None Reported Past Drug Use History: None Reported - Past Family History Father Additional Family Medical History / Comment(s): pulmonary disease Mother Family Medical History: Cancer Additional Family Medical History / Comment(s): colon cancer Medications and Allergies Home Medications Medication Instructions Recorded Confirmed Type Acetaminophen [Tylenol Extra 1,000 mg PO Q4H PRN 05/14/19 05/14/19 History Strength] Aspirin [Adult Low Dose Aspirin EC] 81 mg PO DAILY 05/14/19 05/14/19 History Atorvastatin [Lipitor] 80 mg PO DAILY 05/14/19 05/14/19 History Budesonide-Formot 160-4.5 Mcg 1 puff INHALATION RT-BID 05/14/19 05/14/19 History [Symbicort 160-4.5 Mcg Inhaler] Calcium Carb-Vit D 250Mg-125Un 1 tab PO BID 05/14/19 05/14/19 History [Oscal 250+D] HYDROcodone/APAP 5-325MG [[place] 1 tab PO BID PRN 05/14/19 05/14/19 History 5-325] Ipratropium-Albuterol Nebulize 3 ml INHALATION RT-TID 05/14/19 05/14/19 History [Duoneb 0.5 mg-3 mg/3 ml Soln] Metoprolol Tartrate [Lopressor] 12.5 mg PO BID 05/14/19 05/14/19 History Potassium Chloride ER [K-Dur 10] 10 meq PO DAILY 05/14/19 05/14/19 History Sodium Bicarbonate Tab 650 mg PO BID 05/14/19 05/14/19 History Torsemide [Demadex] 20 mg PO DAILY 05/14/19 05/14/19 History guaiFENesin [Mucinex] 1,200 mg PO BID 05/14/19 05/14/19 History Allergies Allergy/AdvReac Type Severity Reaction Status Date / Time No Known Allergies Allergy Verified 05/14/19 09:48 Physical Exam Vitals: Vital Signs Temp Pulse Pulse Resp BP Pulse Ox 05/15/19 11:35 99.5 F 97 32 H 100/55 98 05/15/19 08:42 116 H 05/15/19 08:29 120 H 05/15/19 08:00 98.1 F 119 H 30 H 112/65 90 L 05/15/19 04:00 97.6 F 109 H 22 97/61 97 05/15/19 03:41 99 05/15/19 03:35 97 05/15/19 03:05 22 05/15/19 00:59 30 H 05/15/19 00:26 95 05/15/19 00:11 95 05/14/19 23:33 98 F 91 22 132/63 93 L 05/14/19 20:03 116 H 05/14/19 19:52 107 H 16 05/14/19 19:30 98.9 F 119 H 22 124/61 99 05/14/19 15:51 120 H 20 05/14/19 15:37 118 H 22 92 L 05/14/19 15:07 129 H 22 05/14/19 14:00 98.3 F 129 H 20 140/63 98 05/14/19 12:18 137 H 05/14/19 12:03 134 H Intake and Output 05/14/19 05/15/19 05/15/19 22:59 06:59 14:59 Intake Total 46.703 125 Balance 46.703 125 Intake: Intake, IV Titration 46.703 25 Amount Diltiazem 125 mg In 25 Sodium Chloride 0.9% 100 ml @ 5 MG/HR 5 mls/hr IV .Q24H [facility] Rx#:[id number] Heparin Sod,Pork in 0.45% 46.703 NaCl 25,000 unit In 0.45 % NaCl 1 250ml.bag @ 12 UNITS/KG/HR 7.185 mls/hr IV .Q24H [facility] Rx#: [id number] Oral 100 Other: Voiding Method Bedpan Indwelling Catheter Indwelling Catheter Weight 59.874 kg - Constitutional General appearance: mild distress (On CPAP) - EENT Eyes: EOMI, PERRLA ENT: hearing grossly normal, normal oropharynx - Neck Neck: no lymphadenopathy Thyroid: bilateral: normal size - Respiratory Respiratory: right: wheezing, left: diminished (Left lower lobe, with transmitted breath sounds heard), dullness, bilateral: prolonged expiration - Cardiovascular Rhythm: regular Heart sounds: normal: S1, S2 - Gastrointestinal General gastrointestinal: normal bowel sounds, soft - Integumentary Integumentary: normal - Neurologic Neurologic: CNII-XII intact - Musculoskeletal Musculoskeletal: generalized weakness, strength equal bilaterally - Psychiatric Psychiatric: A&O x's 3, appropriate affect Results CBC & Chem 7: 05/14/19 09:15 05/14/19 09:15 Labs: Abnormal Lab Results - Last 24 Hours (Table) 05/14/19 05/14/19 05/14/19 Range/Units 09:15 15:12 18:01 APTT 42.1 H (22.0-30.0) sec Troponin I 0.305 H* (0.000-0.034) ng/mL Triglycerides 257 H (<150) mg/dL 05/14/19 05/15/19 Range/Units 20:49 00:02 APTT 53.3 H (22.0-30.0) sec Troponin I 0.292 H* (0.000-0.034) ng/mL Triglycerides (<150) mg/dL Microbiology - Last 24 Hours (Table) 05/14/19 09:15 Blood Culture - Preliminary Blood No Growth after 24 hours Abdominal x-ray: report reviewed CT scan - chest: report reviewed US - abdomen: report reviewed Assessment and Plan (1) Cancer of left lung Narrative/Plan: The patient has a recent diagnosis of malignant pleural effusion, with cytology positive for adenocarcinoma consistent with lung primary. In addition CAT scan showed evidence of obstructive pathology in the left lower lobe bronchus, confirmed on bronchoscopy with possible bronchial biopsy positive for the same pathology. The patient had an oncology referral made this last week but was readmitted with recurrent pleural effusion. The pathology, and medications were discussed in detail with the patient and her family. They were advised that the presence of malignant pleural effusion, even in the absence of disease elsewhere constitutes metastatic, stage IV disease. This is typically not curable, with localized treatment such as surge ry not be an option. The mainstay of treatment would be systemic therapy with chemoimmunotherapy, or targeted agents alone if the patient has an appropriate molecular target. At this time by marker testing has already been ordered by pathology and is pending. The patient will need completion of staging with whole body and brain imaging, as well as bone imaging. Her creatinine is 1.5 due to which he would be at risk for using iodinated contrast for CT scans. I'll therefore order a bone sca n, especially given her symptoms of right hip pain. We will check with nephrology if MRI brain with contrast can be performed at this creatinine level with hydration. We can then plan on a PET scan as an outpatient for completion of staging. In the meantime the patient will need symptom control would drainage of the pleural effusion which is being planned. Her performance status at baseline was fairly reasonable before development of cancer-related symptoms. Therefore if her this were to symptoms can be controlled the patient could be an appropriate candidate for systemic therapy. Final treatment plan will be finalized once by marker testing results are available and the patient's respiratory status is stabilized Current Visit: Yes Status: Acute Code(s): C34.92 - MALIGNANT NEOPLASM OF UNSP PART OF LEFT BRONCHUS OR LUNG SNOMED Code(s): 754494832 (2) Malignant pleural effusion Narrative/Plan: Due to lung primary as noted. The patient is having recurrent effusion within about 2 weeks. Repeat thoracentesis was planned. She had good relief of symptoms after prior thoracentesis. As she is having recurrence comparatively quickly it would be reasonable to assess her for placement of a drainage catheter. Case was discussed in detail with the admitting service. They will place a consult to CT surgery Current Visit: Yes Status: Acute Code(s): J91.0 - MALIGNANT PLEURAL EFFUSION SNOMED Code(s): 52657265 Plan: Defer to the admitting service and other consultants for management of her mu ltiple other medical problems
[2019-05-15] MEDS: ALPRAZolam 0.25 MG TAB PO PRN (12:48)
--- NOTE | 2019-05-15 13:35 | P.PN ---
Subjective Progress Note Date: 05/15/19 Principal diagnosis: Complete opacification of the left lung secondary to progression of endobronchial tumor involving left lower lobe and a malignant left-sided pleural effusion This is a 79-year-old female, familiar to our service, she was seen by Dr. Hollis last on 04/27/2019, patient presented at the time with cough, shortness of breath, pleural effusion, and abnormal CT of the chest. Patient underwent thoracentesis of the left pleural effusion, she underwent a bronchoscopy and endobronchial biopsy of left lower lobe endobronchial tumor, and the diagnosis was confirmed as adenocarcinoma. Patient was referred to see the oncologist, and her appointment is pending. She was also supposed to see Dr. Hollis in the office however she was notified over the phone about her diagnosis and about the plans to refer her to oncology. Patient has not been seen by oncology yet. Patient came into the ER complaining of increased shortness of breath, which has been progressively worse since her last admission. Upon evaluation in the ER, her left lung was noted to be completely opacified. And based on the clinical history and based on the chest x-ray, I believe the patient clearly has opacification of the left lung secondary to endobronchial tumor involving the left lower lobe bronchus, and good sized left pleural effusion which is suspected. Ultrasound is pending, however patient is refusing to have thoracentesis if ultrasound shows enough fluid to be drained. Apparently she had significant amount of discomfort during her last thoracentesis and at the end of the procedure she developed significant pain and discomfort in the left chest. While in the ER, and before transferring the patient to the floor, she developed an episode of atrial fibrillation with RVR, her labs showed evidence of leukocytosis with WBC count of 20.9 hemoglobin 9.9. Electrolytes were normal BUN however was 82 creatinine 1.50, BNP level was 3700, and her troponin was noted to be elevated at 0.237. Cardiology was consulted, and consultation is pending. I evaluated the patient in the ER, discussed her condition with all her family members at bedside, patient clearly refuses to have thoracentesis and I did go ahead and recommended ultrasound to be done. She may or may not requi re repeat bronchoscopy early next week. On 05/15/2019 patient seen in follow-up on selective care unit. During the night patient's breathing had worsened, and patient had to be placed on BiPAP support and she was given a dose of IV Lasix at 1:00 in the morning. Aspirin she remains on BiPAP support, with FiO2 at 55%, and her pulse ox is only 90%, she is tachycardic, she is tachypneic. Patient had declined thoracentesis previously, will discuss it with her again, she did have episode of atrial fibrillation, and sinus tachycardia. She is on antibiotic coverage in the form of Zosyn, blood culture showed no growth, we have been unable to send the sputum culture. Objective - Vital Signs Vital signs: Vital Signs Temp 99.5 F 05/15/19 11:35 Pulse 97 05/15/19 11:35 Resp 32 H 05/15/19 11:35 BP 100/55 05/15/19 11:35 Pulse Ox 98 05/15/19 11:35 Intake & Output 05/14/19 05/15/19 05/15/19 18:59 06:59 18:59 Intake Total 46.703 125 Balance 46.703 125 Weight 59.874 kg 59.874 kg Intake: Intake, IV Titration 46.703 25 Amount Diltiazem 125 mg In 25 Sodium Chloride 0.9% 100 ml @ 5 MG/HR 5 mls/hr IV .Q24H [facility] Rx#:[id number] Heparin Sod,Pork in 0.45% 46.703 NaCl 25,000 unit In 0.45 % NaCl 1 250ml.bag @ 12 UNITS/KG/HR 7.185 mls/hr IV .Q24H [facility] Rx#: [id number] Oral 100 Other: Voiding Method Indwelling Catheter Indwelling Catheter - Exam GENERAL EXAM: Alert, pleasant, 79-year-old white female, on BiPAP support, tachypneic comfortable in no apparent distress. HEAD: Normocephalic/atraumatic. EYES: Normal reaction of pupils, equal size. Conjunctiva pink, sclera white. NOSE: Clear with pink turbinates. THROAT: No erythema or exudates. NECK: No masses, no JVD, no thyroid enlargement, no adenopathy. CHEST: No chest wall deformity. Symmetrical expansion. LUNGS: Equal air entry with wheezing, diminished breath sounds CVS: Regular rate and rhythm, normal S1 and S2, no gallops, no murmurs, no rubs ABDOMEN: Soft, nontender. No hepatosplenomegaly, normal bowel sounds, no guarding or rigidity. EXTREMITIES: No clubbing, no edema, no cyanosis, 2+ pulses and upper and lower extremities. MUSCULOSKELETAL: Muscle strength and tone normal. SPINE: No scoliosis or deformity SKIN: No rashes CENTRAL NERVOUS SYSTEM: Alert and oriented -3. No focal deficits, tone is normal in all 4 extremities. PSYCHIATRIC: Alert and oriented -3. Appropriate affect. Intact judgment and insight. - Labs CBC & Chem 7: 05/14/19 09:15 05/14/19 09:15 Labs: Abnormal Lab Results - Last 24 Hours (Table) 05/14/19 05/14/19 05/14/19 Range/Units 09:15 15:12 18:01 APTT 42.1 H (22.0-30.0) sec Troponin I 0.305 H* (0.000-0.034) ng/mL Triglycerides 257 H (<150) mg/dL 05/14/19 05/15/19 Range/Units 20:49 00:02 APTT 53.3 H (22.0-30.0) sec Troponin I 0.292 H* (0.000-0.034) ng/mL Triglycerides (<150) mg/dL Microbiology - Last 24 Hours (Table) 05/14/19 09:15 Blood Culture - Preliminary Blood No Growth after 24 hours Assessment and Plan Plan: Assessment: 1 complete opacification of the left lung secondary to progression of endobronchial tumor involving left lower lobe and malignant left-sided pleural effusion. 2 history of underlying COPD, presently inactive. 3. Pre-Renal azotemia, most likely secondary to diuretics. 4 new-onset atrial fibrillation with RVR, being addressed by cardiology on the case 5 known history of coronary artery disease with previous stenting of the circumflex artery. 6 ex-smoker, quit smoking 4 months ago. 7 severe osteoarthritis of both hips 8 possible non-ST elevation myocardial infarction Plan: We'll continue with BiPAP support, ultrasound of the chest was reviewed, showing 4.8 cm fluid pocket on the left, which was loculated. We will consult interventional radiology for placement of a pigtail chest tube for a malignant loculated left-sided pleural effusion, and the possibility of infection is not excluded, pleural fluid will be sent for cultures, analysis and cytology. We'll start Zosyn, we'll start Solu-Medrol, breathing treatments. Patient is currently off BiPAP on 15 L high flow nasal cannula, Xanax will be ordered for anxiety, she may wear BiPAP support as needed we'll continue to follow I performed a history & physical examination of the patient and discussed their management with my nurse practitioner, Dinah Laguna. I reviewed the nurse practitioner's note and agree with the documented findings and plan of care. Lung sounds are positive for diffuse rhonchi and wheezes throughout the lung pandya. The findings and the impression was discussed with the patient. I attest to the documentation by the nurse practitioner. Time with Patient: Less than 30
--- NOTE | 2019-05-15 13:45 | P.CRDCN ---
History of Present Illness History of present illness: This is Dr. Burleson dictating a consult on this patient The patient was interviewed and examined by me IMPRESSION / ASSESSMENT: Acute respiratory distress on account of opacification of the left lung from an endobronchial tumor requiring noninvasive ventilatory support Borderline abnormal troponins Blood pressure stable PLAN: Abnormal cardiac enzymes likely a type II myocardial infarction Stop IV diltiazem continue aspirin and statins and increased beta gerry dose. Discussed the nurse From a cardiac standpoint I see no indication for continuing IV heparin No further cardiac workup unless there is a change in her condition HPI 78-year-old female who presented with worsening shortness of breath She complains of cough expectoration and pain all over the body Minimal relief with nebulizer treatment that was given by the paramedics When we examined her she was visibly short of breath at rest using a BiPAP mask She denied any chest discomfort dizziness palpitations She has sinus tachycardia and she was treated with IV Cardizem from the emergency room Recent diagnosis of adenocarcinoma of the lung. She underwent thoracentesis of left pleural effusion She is waiting to see an oncologist Her left lung is almost completely opacified secondary to endobronchial tumor involving the left lower lobe bronchus Cardiology is consulted for abnormal cardiac enzymes borderline and mostly flat trend ROS: No fever chills or rigors, + cough, phlegm or expectoration, no nausea, vomiting or diarrhea, no hematuria, dysuria, no musculoskeletal complaints, no strokes or seizures, no skin lesions. EXAMINATION: Visibly short of breath at rest in acute respiratory distress Using CPAP mask Tachypneic Tachycardic Temperature 99.5 degrees Abdomen soft Heart sounds at cardiac Breath sounds are reduced, bilateral rhonchi No lower extremity edema REVIEW OF LABS, ECG & MEDICAL DATA Troponin 0.237, 0.305, 0.292 Sodium 135 potassium 4.7 BUN 82 creatinine 1.5 AST and ALT are mildly increased White count elevated at 21,000 elevated neutrophil count platelets 255,000 Chest x-ray shows complete opacification of left hemithorax Past Medical History Past Medical History: Heart Failure, Hyperlipidemia, Hypertension, Myocardial Infarction ([place]) Additional Past Medical History / Comment(s): Lung Cancer Last Myocardial Infarction Date:: 2015 History of Any Multi-Drug Resistant Organisms: None Reported Past Surgical History: Heart Catheterization, Heart Catheterization With Stent Past Anesthesia/Blood Transfusion Reactions: No Reported Reaction Date of Last Stent Placement:: 2015 Past Psychological History: No Psychological Hx Reported Smoking Status: Current every day smoker Past Alcohol Use History: None Reported Past Drug Use History: None Reported - Past Family History Father Additional Family Medical History / Comment(s): pulmonary disease Mother Family Medical History: Cancer Additional Family Medical History / Comment(s): colon cancer Medications and Allergies Home Medications Medication Instructions Recorded Confirmed Type Acetaminophen [Tylenol Extra 1,000 mg PO Q4H PRN 05/14/19 05/14/19 History Strength] Aspirin [Adult Low Dose Aspirin EC] 81 mg PO DAILY 05/14/19 05/14/19 History Atorvastatin [Lipitor] 80 mg PO DAILY 05/14/19 05/14/19 History Budesonide-Formot 160-4.5 Mcg 1 puff INHALATION RT-BID 05/14/19 05/14/19 History [Symbicort 160-4.5 Mcg Inhaler] Calcium Carb-Vit D 250Mg-125Un 1 tab PO BID 05/14/19 05/14/19 History [Oscal 250+D] HYDROcodone/APAP 5-325MG [Ida 1 tab PO BID PRN 05/14/19 05/14/19 History 5-325] Ipratropium-Albuterol Nebulize 3 ml INHALATION RT-TID 05/14/19 05/14/19 History [Duoneb 0.5 mg-3 mg/3 ml Soln] Metoprolol Tartrate [Lopressor] 12.5 mg PO BID 05/14/19 05/14/19 History Potassium Chloride ER [K-Dur 10] 10 meq PO DAILY 05/14/19 05/14/19 History Sodium Bicarbonate Tab 650 mg PO BID 05/14/19 05/14/19 History Torsemide [Demadex] 20 mg PO DAILY 05/14/19 05/14/19 History guaiFENesin [Mucinex] 1,200 mg PO BID 05/14/19 05/14/19 History Allergies Allergy/AdvReac Type Severity Reaction Status Date / Time No Known Allergies Allergy Verified 05/14/19 09:48 Physical Exam Vitals: Vital Signs Temp Pulse Pulse Resp BP Pulse Ox 05/15/19 12:49 100 05/15/19 12:41 102 H 05/15/19 11:35 99.5 F 97 32 H 100/55 98 05/15/19 08:42 116 H 05/15/19 08:29 120 H 05/15/19 08:00 98.1 F 119 H 30 H 112/65 90 L 05/15/19 04:00 97.6 F 109 H 22 97/61 97 05/15/19 03:41 99 05/15/19 03:35 97 05/15/19 03:05 22 05/15/19 00:59 30 H 05/15/19 00:26 95 05/15/19 00:11 95 05/14/19 23:33 98 F 91 22 132/63 93 L 05/14/19 20:03 116 H 05/14/19 19:52 107 H 16 05/14/19 19:30 98.9 F 119 H 22 124/61 99 05/14/19 15:51 120 H 20 05/14/19 15:37 118 H 22 92 L 05/14/19 15:07 129 H 22 05/14/19 14:00 98.3 F 129 H 20 140/63 98 Intake and Output 05/14/19 05/15/19 05/15/19 22:59 06:59 14:59 Intake Total 46.703 125 Balance 46.703 125 Intake: Intake, IV Titration 46.703 25 Amount Diltiazem 125 mg In 25 Sodium Chloride 0.9% 100 ml @ 5 MG/HR 5 mls/hr IV .Q24H [facility] Rx#:[id number] Heparin Sod,Pork in 0.45% 46.703 NaCl 25,000 unit In 0.45 % NaCl 1 250ml.bag @ 12 UNITS/KG/HR 7.185 mls/hr IV .Q24H [facility] Rx#: [id number] Oral 100 Other: Voiding Method Bedpan Indwelling Catheter Indwelling Catheter Weight 59.874 kg Results 05/14/19 09:15 05/14/19 09:15 Cardiac Enzymes 05/14/19 05/14/19 Range/Units 15:12 20:49 Troponin I 0.305 H* 0.292 H* (0.000-0.034) ng/mL Coagulation 05/14/19 05/15/19 Range/Units 18:01 00:02 APTT 42.1 H 53.3 H (22.0-30.0) sec Lipids 05/14/19 Range/Units 09:15 Triglycerides 257 H (<150) mg/dL Cholesterol 141 (<200) mg/dL HDL Cholesterol 45 (40-60) mg/dL Current Medications Generic Name Dose Route Start Last Admin Trade Name Freq PRN Reason Stop Dose Admin Acetaminophen 1,000 mg 05/14/19 11:47 05/14/19 18:07 Tylenol Tab PO 1,000 mg Q4H PRN Administration Pain Hydrocodone Bitart/Acetaminophen 1 each 05/14/19 11:47 05/14/19 12:10 Ida 5-325 PO 1 each BID PRN Administration Pain Albuterol/Ipratropium 3 ml 05/14/19 12:00 05/15/19 12:37 Duoneb 0.5 Mg-3 Mg/3 Ml Soln INHALATION 3 ml RT-Q4H [facility] Administration Alprazolam 0.25 mg 05/15/19 12:19 05/15/19 12:48 Xanax PO 0.25 mg TID PRN Administration Anxiety Aspirin 81 mg 05/15/19 09:00 05/15/19 07:55 Aspirin PO 81 mg DAILY [facility] Administration Atorvastatin Calcium 80 mg 05/15/19 09:00 05/15/19 07:55 Lipitor PO 80 mg DAILY [facility] Administration Budesonide/Formoterol Fumarate 1 puff 05/14/19 20:00 05/14/19 20:07 Symbicort 160-4.5 Mcg Inhaler INHALATION 1 puff RT-BID [facility] Administration Calcium Carbonate 1 each 05/14/19 21:00 05/15/19 07:56 Oscal 250+D PO 1 each BID [facility] Administration Guaifenesin 1,200 mg 05/14/19 21:00 05/15/19 07:55 Mucinex PO 1,200 mg BID [facility] Administration Heparin Sodium/Sodium Chloride 250 mls @ 7.185 mls/hr 05/14/19 11:45 05/14/19 18:44 25,000 unit/ Sodium Chloride IV 14 units/kg/hr .Q24H [facility] 8.382 mls/hr Titration Protocol 12 UNITS/KG/HR Piperacillin Sod/Tazobactam 100 mls @ 25 mls/hr 05/15/19 16:00 Sod 3.375 gm/ Sodium Chloride IVPB Q8HR [facility] Methylprednisolone Sodium Succinate 40 mg 05/15/19 16:00 Solu-Medrol IV Q8HR [facility] Metoprolol Tartrate 25 mg 05/15/19 21:00 Lopressor PO BID [facility] Nitroglycerin 0.4 mg 05/14/19 11:44 Nitrostat SUBLINGUAL Q5M PRN Chest Pain Potassium Chloride 10 meq 05/15/19 09:00 05/15/19 07:56 K-Dur 10 PO 10 meq DAILY [facility] Administration Sodium Bicarbonate 650 mg 05/14/19 21:00 05/15/19 07:55 Sodium Bicarbonate Tab PO 650 mg BID [facility] Administration Torsemide 20 mg 05/15/19 09:00 05/15/19 08:17 Demadex PO 20 mg DAILY [facility] Administration Intake and Output 05/14/19 05/15/19 05/15/19 22:59 06:59 14:59 Intake Total 46.703 125 Balance 46.703 125 Intake: Intake, IV Titration 46.703 25 Amount Diltiazem 125 mg In 25 Sodium Chloride 0.9% 100 ml @ 5 MG/HR 5 mls/hr IV .Q24H [facility] Rx#:[id number] Heparin Sod,Pork in 0.45% 46.703 NaCl 25,000 unit In 0.45 % NaCl 1 250ml.bag @ 12 UNITS/KG/HR 7.185 mls/hr IV .Q24H [facility] Rx#: [id number] Oral 100 Other: Voiding Method Bedpan Indwelling Catheter Indwelling Catheter Weight 59.874 kg Patient Weight 05/16/19 06:59 Weight 59.874 kg 05/14/19 09:15 05/14/19 09:15
[2019-05-15 15:04] LABS: Anisocytosis Slight; Basophils % (A) 0 %; Eosinophils # (A) 0.3 k/uL (0-0.7); Eosinophils % (A) 2 %; HCT 26.3 % (34.0-46.0); HGB 8.6 gm/dL (11.4-16.0); Hypochromasia Moderate; Lymphocytes # (A) 2.2 k/uL (1.0-4.8); Lymphocytes % (A) 13 %; MCH 28.4 pg (25.0-35.0); MCHC 32.8 g/dL (31.0-37.0); MCV 86.6 fL (80.0-100.0); Mean Platelet Volume 7.6; Monocytes # (A) 0.7 k/uL (0-1.0); Monocytes % (A) 4 %; Neutrophils # (A) 13.7 k/uL (1.3-7.7); Neutrophils % (A) 80 %; Platelet Count 262 k/uL (150-450); Poikilocytosis Slight; RBC 3.03 m/uL (3.80-5.40); RDW 18.4 % (11.5-15.5); WBC 17.1 k/uL (3.8-10.6)
[2019-05-15 16:01] LABS: Calcium 8.7 mg/dL (8.4-10.2); Potassium 4.7 mmol/L (3.5-5.1)
[2019-05-15] MEDS: methylPREDNISolone SOD SUCCI 40 MG/ML 1 ML VIAL IV SCH ×2 (16:06→23:10)
--- NOTE | 2019-05-15 16:07 | P.PN ---
Progress Note - Text Progress Note Date: 05/15/19 Chief Complaint: Short of breath Interval history: This is a pleasant 79-year-old patient of Dr. agarwal from [place]. Patient was recently in the hospital discharged on April 10. Patient was then admitted for COPD exacerbation being a smoker and CHF exacerbation. EF is 60-65%. Chronic stable medical conditions include hypertensive heart disease, coronary artery disease with stent, hypertension, and osteoarthritis. Patient recently was due to get orthopedic surgery but this was postponed. Patient on the last admission was found to have left pleural effusion that was tapped. 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 Patient is awaiting to see oncology. Patient now presents with worsening short of breath and poor appetite and weight loss congested cough. Significant a short of breath at rest. Today-daughter the bedside. Patient remains short of breath. Cough present. Poor oral intake. Review of systems: Was done for constitutional, cardiovascular, GI, pulmonary. relevant finding as above Current medications are reviewed that include:: DuoNeb, IV heparin, IV Zosyn Physical examination: VITAL SIGNS: 99.5, 97, 32, 100/55, 98% on nasal cannula GENERAL: laying in bed, short of breath at rest. EYES: Pupils equal. Conjunctiva pale. HEENT: External appearance of nose and ears normal, oral cavity grossly normal. Decreased hearing, nasal cannula NECK: JVD unable to assess; masses not palpable. HEART: Heart sounds irregular; no edema. LUNGS: Respiratory rate increased, bilateral inspiratory and expiratory crackles , audible and some wheezing ABDOMEN: Soft, nontender, liver spleen not palpable, no masses palpable. PSYCH: Alert and oriented x3; mood and affect anxious. MUSCULAR skeletal: Evidence of osteoarthritis in the hands Investigations: White count 17.1 hemoglobin 8.6 potassium 4.7 BUN 92 creatinine 1.50 Patient's BUN/creatinine was 99/1.97 on April 30 EKG tracing personally reviewed by me shows sinus tachycardia Checks x-ray film personally reviewed by me shows near whiteout of the left side Assessment: -Worsening Large left pleural effusion from underlying adenocarcinoma,, causing near whiteout of the left side -Possible underlying pneumonia -Acute hypoxic respiratory failure from above -Chronic congestive heart failure from diastolic dysfunction EF 60-65% -Hypertensive heart disease -Acute COPD exacerbation in an ex-smoker -Coronary artery disease with prior history of stent -Advanced primary osteoarthritis -Medical debility from underlying malignancy and multiple comorbidities -Chronic kidney disease suspect underlying nephrosclerosis, stage III -Sinus tachycardia multifactorial -Troponin leak from hemodynamic mismatch, doubt acute coronary syndrome Plan: Discussed with Dr. Ansari for pulmonary. Cardiothoracic surgery is being consulted for a possible Pleurx. Also discussed with Dr. Pérez from oncology. They will evaluate the patient. Did discuss with the patient daughter the bedside. Continue with antibiotics oxygen supportive care. Prognosis guarded. Total time spent today was about 35-40 minutes with over 20 minutes of discussion
[2019-05-15] MEDS: PIPERACILLIN-TAZOBACTAM 3.375 GM in SODIUM CHLORIDE 0.9% 100 ML IVPB SCH ×2 (16:14→23:10)
[2019-05-15 16:46] LABS: Glucose,Whole Blood 186 mg/dL (75-99)
[2019-05-15] MEDS: INSULIN ASPART (NovoLOG) 100 UNIT/ML VIAL SQ SCH ×2 (17:21→20:19)
[2019-05-15] MEDS: HEPARIN SOD,PORK IN 0.45% NACL 25,000 UNIT in 0.45% NACL 1 250ML.BAG IV SCH (18:08)
[2019-05-15 20:10] LABS: Glucose,Whole Blood 230 mg/dL (75-99)
[2019-05-15] MEDS: METOPROLOL TARTRATE 25 MG TAB PO SCH (20:19)
[2019-05-15] MEDS: SYMBICORT 160-4.5 MCG INHALER INHALATION SCH (20:27)
[2019-05-15] MEDS: HYDROcodone/APAP 5-325MG 1 EACH TAB PO PRN (20:27)
[2019-05-16] MEDS: IPRATROPIUM-ALBUTEROL 3 ML NEB INHALATION SCH ×6 (03:58→23:24)
[2019-05-16 06:28] LABS: Glucose,Whole Blood 188 mg/dL (75-99)
[2019-05-16] MEDS: INSULIN ASPART (NovoLOG) 100 UNIT/ML VIAL SQ SCH ×4 (06:38→22:20)
[2019-05-16 07:26] LABS: Anisocytosis Slight; HCT 24.5 % (34.0-46.0); HGB 7.7 gm/dL (11.4-16.0); Hypochromasia Moderate; MCH 27.6 pg (25.0-35.0); MCHC 31.6 g/dL (31.0-37.0); MCV 87.6 fL (80.0-100.0); Mean Platelet Volume 7.5; Platelet Count 217 k/uL (150-450); Poikilocytosis Slight; RDW 18.7 % (11.5-15.5); WBC 11.9 k/uL (3.8-10.6)
[2019-05-16 07:44] LABS: Calcium 8.7 mg/dL (8.4-10.2)
[2019-05-16] MEDS: METOPROLOL TARTRATE 25 MG TAB PO SCH ×2 (09:43→21:03)
[2019-05-16] MEDS: HYDROcodone/APAP 5-325MG 1 EACH TAB PO PRN ×3 (09:43→22:20)
[2019-05-16] MEDS: CALCIUM CARB-VIT D 250MG-125UN 1 EACH TAB PO SCH ×2 (09:44→21:03)
[2019-05-16] MEDS: SODIUM BICARBONATE TAB 650 MG TAB PO SCH ×2 (09:44→21:04)
[2019-05-16] MEDS: ATORVASTATIN 80 MG TAB PO SCH (09:44)
[2019-05-16] MEDS: POTASSIUM CHLORIDE ER 10 MEQ TAB.ER.PRT PO SCH ×2 (09:44→09:52)
[2019-05-16] MEDS: guaiFENesin 600 MG TABLET.ER PO SCH ×2 (09:44→21:03)
[2019-05-16] MEDS: TORSEMIDE 20 MG TAB PO SCH (09:44)
[2019-05-16] MEDS: PIPERACILLIN-TAZOBACTAM 3.375 GM in SODIUM CHLORIDE 0.9% 100 ML IVPB SCH ×3 (09:45→23:54)
[2019-05-16] MEDS: methylPREDNISolone SOD SUCCI 40 MG/ML 1 ML VIAL IV SCH ×3 (09:45→23:53)
[2019-05-16] MEDS: ASPIRIN 81 MG PO SCH (09:50)
[2019-05-16] MEDS: ALPRAZolam 0.25 MG TAB PO PRN ×2 (09:51→15:08)
[2019-05-16] MEDS: SYMBICORT 160-4.5 MCG INHALER INHALATION SCH ×2 (11:36→19:53)
[2019-05-16 12:08] LABS: Glucose,Whole Blood 163 mg/dL (75-99)
--- NOTE | 2019-05-16 12:32 | XR ---
EXAMINATION TYPE: XR chest 1V DATE OF EXAM: 05/16/2019 COMPARISON: Prior chest x-ray dated 05/14/2019 HISTORY: Status post chest tube placement TECHNIQUE: Single frontal view of the chest is obtained. FINDINGS: Interval left-sided chest tube placed. Near-complete opacification of left hemithorax is a gain noted. No pneumothorax. Mitral annular calcification is present. Heart is obscured. Aorta is den se. Right lung shows a similar appearance, interstitium is increased. IMPRESSION: No evidence of location status post chest tube placement
--- NOTE | 2019-05-16 12:45 | US ---
EXAMINATION TYPE: US guided chest tube insertion DATE OF EXAM: 05/16/2019 HISTORY: Left pleural effusion, loculated FINDINGS: Maximal barrier technique was utilized. The skin overlying a suitable path to the fluid in the posterior left chest was localized with ultrasound and the overlying skin prepped and draped. L idocaine was used for local anesthesia. A skin evon made with a scalpel. Access was gained to the f luid with a 21-gauge needle. Ultrasound was utilized using sterile technique. A 0.018 inch wire was advanced. Access site was dilated and an 8.5-Yakut catheter advanced into the pleural effusion. Th ere is return of sanguinous serous fluid. Catheter fixed to the skin. Catheter attached to water se al. Hemostasis achieved. No immediate complication and the patient remained in stable condition. IMPRESSION: STATUS POST ULTRASOUND GUIDED PLEURAL FLUID DRAINAGE catheter placement, THIS PROCEDURE W PERFORMED BY THE UNDERSIGNED. Postprocedure chest x-ray pending.
--- NOTE | 2019-05-16 14:36 | P.PN ---
Subjective Progress Note Date: 05/16/19 Principal diagnosis: Complete opacification of the left lung secondary to progression of endobronchial tumor involving left lower lobe and a malignant left-sided pleural effusion This is a 79-year-old female, familiar to our service, she was seen by Dr. Hollis last on 04/27/2019, patient presented at the time with cough, shortness of breath, pleural effusion, and abnormal CT of the chest. Patient underwent thoracentesis of the left pleural effusion, she underwent a bronchoscopy and endobronchial biopsy of left lower lobe endobronchial tumor, and the diagnosis was confirmed as adenocarcinoma. Patient was referred to see the oncologist, and her appointment is pending. She was also supposed to see Dr. Hollis in the office however she was notified over the phone about her diagnosis and about the plans to refer her to oncology. Patient has not been seen by oncology yet. Patient came into the ER complaining of increased shortness of breath, which has been progressively worse since her last admission. Upon evaluation in the ER, her left lung was noted to be completely opacified. And based on the clinical history and based on the chest x-ray, I believe the patient clearly has opacification of the left lung secondary to endobronchial tumor involving the left lower lobe bronchus, and good sized left pleural effusion which is suspected. Ultrasound is pending, however patient is refusing to have thoracentesis if ultrasound shows enough fluid to be drained. Apparently she had significant amount of discomfort during her last thoracentesis and at the end of the procedure she developed significant pain and discomfort in the left chest. While in the ER, and before transferring the patient to the floor, she developed an episode of atrial fibrillation with RVR, her labs showed evidence of leukocytosis with WBC count of 20.9 hemoglobin 9.9. Electrolytes were normal BUN however was 82 creatinine 1.50, BNP level was 3700, and her troponin was noted to be elevated at 0.237. Cardiology was consulted, and consultation is pending. I evaluated the patient in the ER, discussed her condition with all her family members at bedside, patient clearly refuses to have thoracentesis and I did go ahead and recommended ultrasound to be done. She may or may not requi re repeat bronchoscopy early next week. On 05/15/2019 patient seen in follow-up on selective care unit. During the night patient's breathing had worsened, and patient had to be placed on BiPAP support and she was given a dose of IV Lasix at 1:00 in the morning. Aspirin she remains on BiPAP support, with FiO2 at 55%, and her pulse ox is only 90%, she is tachycardic, she is tachypneic. Patient had declined thoracentesis previously, will discuss it with her again, she did have episode of atrial fibrillation, and sinus tachycardia. She is on antibiotic coverage in the form of Zosyn, blood culture showed no growth, we have been unable to send the sputum culture. On 05/16/2017 patient seen in follow-up on selective care unit, she is currently off the BiPAP, on 15 L per high flow nasal cannula, and her pulse ox is 100%, this can probably be weaned down, vital signs are stable, patient is breathing easier today, although her lung sounds are still diminished with some scattered rhonchi. Patient had a left-sided pigtail chest tube catheter placed by interventional radiology, and it is connected to Pleur-evac and there is approximately 300 mL of serosanguineous drainage in the Pleur-evac, it is to wall suction, with no apparent air leak. Today's labs have been reviewed, showing white blood cell count of 11.9, hemoglobin of 7.7, sodium 136, potassium is 5.0, chloride is 98, CO2 is 27, BUN is 86, creatinine is 1.67. Blood culture showed no growth at 48 hours. Chest x-ray was obtained following placement of the left-sided pigtail cath and showed near complete opacification of the left hemothorax, no pneumothorax, increased interstitium. Antibiotic coverage in the form of Zosyn, patient is on Demadex orally, she is on IV Solu-Medrol. Medical oncology is following the patient, and patient is going down for a bone scan this afternoon, MRI of the brain with contrast at a later date, if cleared by nephrology, she will also have a PET scan as outpatient for completion of [facility] Objective - Vital Signs Vital signs: Vital Signs Temp 98 F 05/16/19 09:15 Pulse 97 05/16/19 12:00 Resp 16 05/16/19 12:00 BP 126/60 05/16/19 12:00 Pulse Ox 100 05/16/19 12:00 Intake & Output 05/15/19 05/16/19 05/16/19 18:59 06:59 18:59 Intake Total 365 360 Output Total 1100 Balance 365 -1100 360 Weight 59.874 kg 63 kg Intake: Intake, IV Titration 25 Amount Diltiazem 125 mg In 25 Sodium Chloride 0.9% 100 ml @ 5 MG/HR 5 mls/hr IV .Q24H [facility] Rx#:[id number] Oral 340 360 Output: Urine 1100 Other: Voiding Method Indwelling Catheter Indwelling Catheter Indwelling Catheter - Exam GENERAL EXAM: Alert, pleasant, 79-year-old white female, on 15l/min, in no apparent distress. HEAD: Normocephalic/atraumatic. EYES: Normal reaction of pupils, equal size. Conjunctiva pink, sclera white. NOSE: Clear with pink turbinates. THROAT: No erythema or exudates. NECK: No masses, no JVD, no thyroid enlargement, no adenopathy. CHEST: No chest wall deformity. Symmetrical expansion. LUNGS: Equal air entry with diminished breath sounds with scattered rhonchi and some wheezing CVS: Regular rate and rhythm, normal S1 and S2, no gallops, no murmurs, no rubs ABDOMEN: Soft, nontender. No hepatosplenomegaly, normal bowel sounds, no guarding or rigidity. EXTREMITIES: No clubbing, no edema, no cyanosis, 2+ pulses and upper and lower extremities. MUSCULOSKELETAL: Muscle strength and tone normal. SPINE: No scoliosis or deformity SKIN: No rashes CENTRAL NERVOUS SYSTEM: Alert and oriented -3. No focal deficits, tone is normal in all 4 extremities. PSYCHIATRIC: Alert and oriented -3. Appropriate affect. Intact judgment and insight. - Labs CBC & Chem 7: 05/16/19 05:42 05/16/19 05:42 Labs: Abnormal Lab Results - Last 24 Hours (Table) 05/15/19 05/15/19 05/15/19 Range/Units 14:55 14:55 16:45 WBC 17.1 H (3.8-10.6) k/uL RBC 3.03 L (3.80-5.40) m/uL Hgb 8.6 L (11.4-16.0) gm/dL Hct 26.3 L (34.0-46.0) % RDW 18.4 H (11.5-15.5) % Neutrophils # 13.7 H (1.3-7.7) k/uL Sodium 134 L (137-145) mmol/L BUN 92 H (7-17) mg/dL Creatinine 1.50 H (0.52-1.04) mg/dL Glucose 210 H (74-99) mg/dL POC Glucose (mg/dL) 186 H (75-99) mg/dL 05/15/19 05/16/19 05/16/19 Range/Units 20:08 05:42 05:42 WBC 11.9 H (3.8-10.6) k/uL RBC 2.80 L (3.80-5.40) m/uL Hgb 7.7 L (11.4-16.0) gm/dL Hct 24.5 L (34.0-46.0) % RDW 18.7 H (11.5-15.5) % Neutrophils # (1.3-7.7) k/uL Sodium 136 L (137-145) mmol/L BUN 86 H (7-17) mg/dL Creatinine 1.67 H (0.52-1.04) mg/dL Glucose 176 H (74-99) mg/dL POC Glucose (mg/dL) 230 H (75-99) mg/dL 05/16/19 05/16/19 Range/Units 06:23 12:05 WBC (3.8-10.6) k/uL RBC (3.80-5.40) m/uL Hgb (11.4-16.0) gm/dL Hct (34.0-46.0) % RDW (11.5-15.5) % Neutrophils # (1.3-7.7) k/uL Sodium (137-145) mmol/L BUN (7-17) mg/dL Creatinine (0.52-1.04) mg/dL Glucose (74-99) mg/dL POC Glucose (mg/dL) 188 H 163 H (75-99) mg/dL Microbiology - Last 24 Hours (Table) 05/14/19 09:15 Blood Culture - Preliminary Blood No Growth after 48 hours Assessment and Plan Plan: Assessment: 1 complete opacification of the left lung secondary to progression of endobronchial tumor involving left lower lobe and malignant left-sided pleural effusion. 2 history of underlying COPD, presently inactive. 3. Pre-Renal azotemia, most likely secondary to diuretics. 4 new-onset atrial fibrillation with RVR, being addressed by cardiology on the case 5 known history of coronary artery disease with previous stenting of the circumflex artery. 6 ex-smoker, quit smoking 4 months ago. 7 severe osteoarthritis of both hips 8 possible non-ST elevation myocardial infarction Plan: Will await results of the pleural fluid cytology, and cultures, continue current antibiotic coverage, continue breathing treatments, BiPAP support as needed, patient is currently on high flow oxygen, and she is satting 100% on 15 L, wean FiO2, encourage deep breathing and coughing, continue with IV steroids, she is going for a bone scan this afternoon, and possible MRI of the brain at a later date once cleared by nephrology, will need outpatient PET scan, medical oncology is working on completion of the staging process. I performed a history & physical examination of the patient and discussed their management with my nurse practitioner, Dinah Laguna. I reviewed the nurse practitioner's note and agree with the documented findings and plan of care. Lung sounds are positive for diffuse rhonchi and wheezes throughout the lung pandya. The findings and the impression was discussed with the patient. I attest to the documentation by the nurse practitioner. Time with Patient: Less than 30
--- NOTE | 2019-05-16 16:37 | NM ---
EXAMINATION TYPE: NM bone scan whole body DATE OF EXAM: 05/16/2019 COMPARISON: NONE HISTORY: Lung cancer. Hip pain. Delayed whole-body scanning was performed following the injection of 25 mCi Tc 99m MDP. Images acqui red 4 hours post injection. FINDINGS: There is abnormal area of activity involving the right iliac bone inferior to the sacroiliac joint. T here are areas of decreased and increased tracer uptake. There is right sided hydronephrosis. Uptake in the bony thorax is fairly normal. There is slight increased uptake at the shoulder joints w hich is fairly symmetric and consistent with osteoarthritis. There is slight increased uptake in the right leg compared to the left probably due to differential blood flow. There is increased uptake in the intertrochanteric right femur compared to the left. IMPRESSION: Right-sided hydronephrosis. Obstruction of the right kidney in the pelvis should be considered. Abnormal increased and decreased uptake in the right iliac bone above the acetabulum. Abdomen x-ray o f 04/27/2019 appears to show pathologic fracture of the right iliac bone. CT scan is recommended for f urther evaluation. This could relate to metastatic disease. Increased uptake right femur intertrochanteric region could relate to metastatic disease.
[2019-05-16 16:48] LABS: Glucose,Whole Blood 151 mg/dL (75-99)
--- NOTE | 2019-05-16 18:42 | P.PN ---
Progress Note - Text Progress Note Date: 05/16/19 Chief Complaint: Short of breath Interval history: This is a pleasant 79-year-old patient of Dr. agarwal from [place]. Patient was recently in the hospital discharged on April 10. Patient was then admitted for COPD exacerbation being a smoker and CHF exacerbation. EF is 60-65%. Chronic stable medical conditions include hypertensive heart disease, coronary artery disease with stent, hypertension, and osteoarthritis. Patient recently was due to get orthopedic surgery but this was postponed. Patient on the last admission was found to have left pleural effusion that was tapped. 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 Patient is awaiting to see oncology. Patient now presents with worsening short of breath and poor appetite and weight loss congested cough. Significant a short of breath at rest. Today-. Patient is a chest tube placed on the left side posteriorly today. Good drainage. Feels better family the bedside. Did eat reasonably. Breathing better. On high flow oxygen Review of systems: Was done for constitutional, cardiovascular, GI, pulmonary. relevant finding as above Current medications are reviewed that include:: IV Zosyn, DuoNeb, IV Solu-Medrol Physical examination: VITAL SIGNS: 98, 97, 18, 141/65, 94% on 15 L GENERAL: Propped up in bed, short of breath EYES: Pupils equal. Conjunctiva pale. HEENT: External appearance of nose and ears normal, oral cavity grossly normal. Decreased hearing, nasal cannula NECK: JVD unable to assess; masses not palpable. HEART: Heart sounds irregular; no edema. LUNGS: Respiratory rate increased, bilateral inspiratory and expiratory crackles , audible and some wheezing ABDOMEN: Soft, nontender, liver spleen not palpable, no masses palpable. PSYCH: Alert and oriented x3; mood and affect anxious. MUSCULAR skeletal: Evidence of osteoarthritis in the hands Investigations: White count 11.9 hemoglobin 7.7 BUN 86 creatinine 1.67 Patient's BUN/creatinine was 99/1.97 on April 30 EKG tracing personally reviewed by me shows sinus tachycardia Checks x-ray film personally reviewed by me shows near whiteout of the left side Assessment: -Worsening Large left pleural effusion from underlying adenocarcinoma,, causing near whiteout of the left side, status post chest tube placement today on May 16 -Possible underlying pneumonia -Acute hypoxic respiratory failure from above, slow to respond requiring high flow oxygen -Chronic congestive heart failure from diastolic dysfunction EF 60-65% -Hypertensive heart disease -Acute COPD exacerbation in an ex-smoker, slow to respond -Coronary artery disease with prior history of stent -Advanced primary osteoarthritis -Medical debility from underlying malignancy and multiple comorbidities -Chronic kidney disease suspect underlying nephrosclerosis, stage III -Sinus tachycardia multifactorial -Troponin leak from hemodynamic mismatch, doubt acute coronary syndrome Plan: Continue with IV antibiotics, bronchodilators, steroids. Follow the output from the chest tube. Care was discussed the patient and family the bedside. Follow
--- NOTE | 2019-05-16 18:46 | P.PN ---
Subjective Progress Note Date: 05/16/19 The patient was off BiPAP, and on oxygen by nasal cannula related. Overall she appears more comfortable. She still has significant generalized weakness. Appetite is reduced. She continues to have some difficulty in swallowing. Objective - Vital Signs Vital signs: Vital Signs Temp 98 F 05/16/19 09:15 Pulse 94 05/16/19 16:55 Resp 16 05/16/19 16:55 BP 125/91 05/16/19 16:55 Pulse Ox 95 05/16/19 16:55 Intake & Output 05/15/19 05/16/19 05/16/19 18:59 06:59 18:59 Intake Total 365 800 Output Total 1100 830 Balance 365 -1100 -30 Weight 59.874 kg 63 kg Intake: Intake, IV Titration 25 200 Amount Diltiazem 125 mg In 25 Sodium Chloride 0.9% 100 ml @ 5 MG/HR 5 mls/hr IV .Q24H [facility] Rx#:[id number] Piperacillin-Tazobactam 3 200 .375 gm In Sodium Chloride 0.9% 100 ml @ 25 mls/hr IVPB Q8HR [facility] Rx# :[id number] Oral 340 600 Output: Drainage 330 Left Chest 330 Urine 1100 500 Other: Voiding Method Indwelling Catheter Indwelling Catheter Indwelling Catheter - Constitutional General appearance: Present: mild distress - EENT Eyes: Present: EOMI ENT: Present: hearing grossly normal, normal oropharynx - Respiratory Respiratory: left: diminished - Cardiovascular Rhythm: regular Heart sounds: normal: S1, S2 - Gastrointestinal General gastrointestinal: Present: normal bowel sounds, soft - Neurologic Neurologic: Present: CNII-XII intact - Musculoskeletal Musculoskeletal: Present: generalized weakness - Psychiatric Psychiatric: Present: A&O x's 3, appropriate affect - Labs CBC & Chem 7: 05/16/19 05:42 05/16/19 05:42 Labs: Abnormal Lab Results - Last 24 Hours (Table) 05/15/19 05/16/19 05/16/19 Range/Units 20:08 05:42 05:42 WBC 11.9 H (3.8-10.6) k/uL RBC 2.80 L (3.80-5.40) m/uL Hgb 7.7 L (11.4-16.0) gm/dL Hct 24.5 L (34.0-46.0) % RDW 18.7 H (11.5-15.5) % Sodium 136 L (137-145) mmol/L BUN 86 H (7-17) mg/dL Creatinine 1.67 H (0.52-1.04) mg/dL Glucose 176 H (74-99) mg/dL POC Glucose (mg/dL) 230 H (75-99) mg/dL 05/16/19 05/16/19 05/16/19 Range/Units 06:23 12:05 16:32 WBC (3.8-10.6) k/uL RBC (3.80-5.40) m/uL Hgb (11.4-16.0) gm/dL Hct (34.0-46.0) % RDW (11.5-15.5) % Sodium (137-145) mmol/L BUN (7-17) mg/dL Creatinine (0.52-1.04) mg/dL Glucose (74-99) mg/dL POC Glucose (mg/dL) 188 H 163 H 151 H (75-99) mg/dL Microbiology - Last 24 Hours (Table) 05/14/19 09:15 Blood Culture - Preliminary Blood No Growth after 48 hours Assessment and Plan (1) Cancer of left lung Narrative/Plan: This is a new diagnosis as noted. The patient has presented with stage IV disease with malignant pleural effusion. At this time extent of disease additionally is not known. Bone scan has been ordered and is pending. Creatinine remains elevated due to which CT dye cannot be utilized. Therefore the plan is for a PET scan as an outpatient. We will discuss with nephrology if MRI but I can be utilized for been imaging. If contrast cannot be utilized an MRI without contrast, with its limitations, would be the best option. Plan discussed in detail with patient and daughter, and all questions answered Current Visit: Yes Status: Acute Code(s): C34.92 - MALIGNANT NEOPLASM OF UNSP PART OF LEFT BRONCHUS OR LUNG SNOMED Code(s): 552997628 (2) Malignant pleural effusion Narrative/Plan: The patient is symptomatically improved today. She has been seen by the pulmonary service. Case discussed with internal medicine with plan for CT surgery consult, the evaluate for Pleurx catheter placement. The functioning of the same, and benefited her clinical situation were discussed in detail with the patient Current Visit: Yes Status: Acute Code(s): J91.0 - MALIGNANT PLEURAL EFFUSION SNOMED Code(s): 32644741
[2019-05-16 20:29] LABS: Glucose,Whole Blood 276 mg/dL (75-99)
[2019-05-16 21:53] LABS: Glucose,Whole Blood 300 mg/dL (75-99)
[2019-05-17] MEDS: IPRATROPIUM-ALBUTEROL 3 ML NEB INHALATION SCH ×6 (03:54→23:07)
[2019-05-17 06:07] LABS: Glucose,Whole Blood 156 mg/dL (75-99)
[2019-05-17] MEDS: INSULIN ASPART (NovoLOG) 100 UNIT/ML VIAL SQ SCH ×4 (06:13→22:03)
[2019-05-17 06:45] LABS: Anisocytosis Slight; HCT 25.3 % (34.0-46.0); HGB 7.9 gm/dL (11.4-16.0); Hypochromasia Slight; MCH 27.7 pg (25.0-35.0); MCHC 31.1 g/dL (31.0-37.0); MCV 89.2 fL (80.0-100.0); Mean Platelet Volume 7.1; Platelet Count 231 k/uL (150-450); Poikilocytosis Slight; RBC 2.84 m/uL (3.80-5.40); RDW 18.6 % (11.5-15.5); WBC 13.5 k/uL (3.8-10.6)
[2019-05-17 06:55] LABS: Calcium 8.6 mg/dL (8.4-10.2); Potassium 4.5 mmol/L (3.5-5.1)
[2019-05-17] MEDS: SYMBICORT 160-4.5 MCG INHALER INHALATION SCH ×2 (08:24→19:16)
[2019-05-17] MEDS: guaiFENesin 600 MG TABLET.ER PO SCH ×2 (09:56→20:39)
[2019-05-17] MEDS: ASPIRIN 81 MG PO SCH (09:56)
[2019-05-17] MEDS: METOPROLOL TARTRATE 25 MG TAB PO SCH ×2 (09:56→20:39)
[2019-05-17] MEDS: POTASSIUM CHLORIDE ER 10 MEQ TAB.ER.PRT PO SCH (09:56)
[2019-05-17] MEDS: TORSEMIDE 20 MG TAB PO SCH (09:56)
[2019-05-17] MEDS: ATORVASTATIN 80 MG TAB PO SCH (09:56)
[2019-05-17] MEDS: SODIUM BICARBONATE TAB 650 MG TAB PO SCH ×2 (09:56→20:39)
[2019-05-17] MEDS: CALCIUM CARB-VIT D 250MG-125UN 1 EACH TAB PO SCH ×2 (09:56→20:40)
[2019-05-17] MEDS: PIPERACILLIN-TAZOBACTAM 3.375 GM in SODIUM CHLORIDE 0.9% 100 ML IVPB SCH ×2 (09:57→15:36)
[2019-05-17] MEDS: methylPREDNISolone SOD SUCCI 40 MG/ML 1 ML VIAL IV SCH ×2 (09:57→15:36)
[2019-05-17 11:05] VITALS: BMI 25.4
[2019-05-17 11:54] LABS: Glucose,Whole Blood 142 mg/dL (75-99)
--- NOTE | 2019-05-17 12:10 | P.PN ---
Subjective Progress Note Date: 05/17/19 Principal diagnosis: Complete opacification of the left lung secondary to progression of endobronchial tumor involving left lower lobe and a malignant left-sided pleural effusion This is a 79-year-old female, familiar to our service, she was seen by Dr. Hollis last on 04/27/2019, patient presented at the time with cough, shortness of breath, pleural effusion, and abnormal CT of the chest. Patient underwent thoracentesis of the left pleural effusion, she underwent a bronchoscopy and endobronchial biopsy of left lower lobe endobronchial tumor, and the diagnosis was confirmed as adenocarcinoma. Patient was referred to see the oncologist, and her appointment is pending. She was also supposed to see Dr. Hollis in the office however she was notified over the phone about her diagnosis and about the plans to refer her to oncology. Patient has not been seen by oncology yet. Patient came into the ER complaining of increased shortness of breath, which has been progressively worse since her last admission. Upon evaluation in the ER, her left lung was noted to be completely opacified. And based on the clinical history and based on the chest x-ray, I believe the patient clearly has opacification of the left lung secondary to endobronchial tumor involving the left lower lobe bronchus, and good sized left pleural effusion which is suspected. Ultrasound is pending, however patient is refusing to have thoracentesis if ultrasound shows enough fluid to be drained. Apparently she had significant amount of discomfort during her last thoracentesis and at the end of the procedure she developed significant pain and discomfort in the left chest. While in the ER, and before transferring the patient to the floor, she developed an episode of atrial fibrillation with RVR, her labs showed evidence of leukocytosis with WBC count of 20.9 hemoglobin 9.9. Electrolytes were normal BUN however was 82 creatinine 1.50, BNP level was 3700, and her troponin was noted to be elevated at 0.237. Cardiology was consulted, and consultation is pending. I evaluated the patient in the ER, discussed her condition with all her family members at bedside, patient clearly refuses to have thoracentesis and I did go ahead and recommended ultrasound to be done. She may or may not requi re repeat bronchoscopy early next week. On 05/15/2019 patient seen in follow-up on selective care unit. During the night patient's breathing had worsened, and patient had to be placed on BiPAP support and she was given a dose of IV Lasix at 1:00 in the morning. Aspirin she remains on BiPAP support, with FiO2 at 55%, and her pulse ox is only 90%, she is tachycardic, she is tachypneic. Patient had declined thoracentesis previously, will discuss it with her again, she did have episode of atrial fibrillation, and sinus tachycardia. She is on antibiotic coverage in the form of Zosyn, blood culture showed no growth, we have been unable to send the sputum culture. On 05/16/2019 patient seen in follow-up on selective care unit, she is currently off the BiPAP, on 15 L per high flow nasal cannula, and her pulse ox is 100%, this can probably be weaned down, vital signs are stable, patient is breathing easier today, although her lung sounds are still diminished with some scattered rhonchi. Patient had a left-sided pigtail chest tube catheter placed by interventional radiology, and it is connected to Pleur-evac and there is approximately 300 mL of serosanguineous drainage in the Pleur-evac, it is to wall suction, with no apparent air leak. Today's labs have been reviewed, showing white blood cell count of 11.9, hemoglobin of 7.7, sodium 136, potassium is 5.0, chloride is 98, CO2 is 27, BUN is 86, creatinine is 1.67. Blood culture showed no growth at 48 hours. Chest x-ray was obtained following placement of the left-sided pigtail cath and showed near complete opacification of the left hemothorax, no pneumothorax, increased interstitium. Antibiotic coverage in the form of Zosyn, patient is on Demadex orally, she is on IV Solu-Medrol. Medical oncology is following the patient, and patient is going down for a bone scan this afternoon, MRI of the brain with contrast at a later date, if cleared by nephrology, she will also have a PET scan as outpatient for completion of st aging On 05/17/2019 patient seen in follow-up on selective care unit, currently on 9 L per minute, with a pulse ox of 97%, no acute distress, breathing easier, did not require BiPAP support last night, she is afebrile, hemodynamically stable, she underwent left-sided pigtail chest tube catheter placed yesterday, and there has been of 400 mL out of the chest tube in the last 24 hours. No air leak noted, follow-up chest x-ray after the procedure showed persistent near complete opacification of the left hemothorax. but no pneumothorax. Afebrile, hemodynamically stable, but culture showed no growth, antibiotic coverage in the form of Zosyn continues. We will proceed with bronchoscopy with BAL tomorrow on 05/18/2019 Objective - Vital Signs Vital signs: Vital Signs Temp 98.1 F 05/17/19 08:55 Pulse 88 05/17/19 11:20 Resp 18 05/17/19 08:55 BP 136/63 05/17/19 08:55 Pulse Ox 97 05/17/19 11:20 Intake & Output 05/16/19 05/17/19 05/17/19 18:59 06:59 18:59 Intake Total 800 120 Output Total 830 270 0 Balance -30 -270 120 Weight 63.2 kg 63.2 kg Intake: Intake, IV Titration 200 Amount Piperacillin-Tazobactam 3 200 .375 gm In Sodium Chloride 0.9% 100 ml @ 25 mls/hr IVPB Q8HR [facility] Rx# :[id number] Oral 600 120 Output: Drainage 330 70 Left Chest 330 70 Urine 500 200 0 Other: Voiding Method Indwelling Catheter Indwelling Catheter - Exam GENERAL EXAM: Alert, pleasant, 79-year-old white female, on 10l/min, in no apparent distress. HEAD: Normocephalic/atraumatic. EYES: Normal reaction of pupils, equal size. Conjunctiva pink, sclera white. NOSE: Clear with pink turbinates. THROAT: No erythema or exudates. NECK: No masses, no JVD, no thyroid enlargement, no adenopathy. CHEST: No chest wall deformity. Symmetrical expansion. LUNGS: Equal air entry with diminished breath sounds with scattered rhonchi and some wheezing CVS: Regular rate and rhythm, normal S1 and S2, no gallops, no murmurs, no rubs ABDOMEN: Soft, nontender. No hepatosplenomegaly, normal bowel sounds, no guarding or rigidity. EXTREMITIES: No clubbing, no edema, no cyanosis, 2+ pulses and upper and lower extremities. MUSCULOSKELETAL: Muscle strength and tone normal. SPINE: No scoliosis or deformity SKIN: No rashes CENTRAL NERVOUS SYSTEM: Alert and oriented -3. No focal deficits, tone is normal in all 4 extremities. PSYCHIATRIC: Alert and oriented -3. Appropriate affect. Intact judgment and insight. - Labs CBC & Chem 7: 05/17/19 05:44 05/17/19 05:44 Labs: Abnormal Lab Results - Last 24 Hours (Table) 05/16/19 05/16/19 05/16/19 Range/Units 12:05 16:32 20:27 WBC (3.8-10.6) k/uL RBC (3.80-5.40) m/uL Hgb (11.4-16.0) gm/dL Hct (34.0-46.0) % RDW (11.5-15.5) % Sodium (137-145) mmol/L BUN (7-17) mg/dL Creatinine (0.52-1.04) mg/dL Glucose (74-99) mg/dL POC Glucose (mg/dL) 163 H 151 H 276 H (75-99) mg/dL 05/16/19 05/17/19 05/17/19 Range/Units 21:51 05:44 05:44 WBC 13.5 H (3.8-10.6) k/uL RBC 2.84 L (3.80-5.40) m/uL Hgb 7.9 L (11.4-16.0) gm/dL Hct 25.3 L (34.0-46.0) % RDW 18.6 H (11.5-15.5) % Sodium 135 L (137-145) mmol/L BUN 96 H (7-17) mg/dL Creatinine 1.73 H (0.52-1.04) mg/dL Glucose 170 H (74-99) mg/dL POC Glucose (mg/dL) 300 H (75-99) mg/dL 05/17/19 05/17/19 Range/Units 06:05 11:47 WBC (3.8-10.6) k/uL RBC (3.80-5.40) m/uL Hgb (11.4-16.0) gm/dL Hct (34.0-46.0) % RDW (11.5-15.5) % Sodium (137-145) mmol/L BUN (7-17) mg/dL Creatinine (0.52-1.04) mg/dL Glucose (74-99) mg/dL POC Glucose (mg/dL) 156 H 142 H (75-99) mg/dL Microbiology - Last 24 Hours (Table) 05/14/19 09:15 Blood Culture - Preliminary Blood No Growth after 72 hours Assessment and Plan Plan: Assessment: 1 complete opacification of the left lung secondary to progression of endobronchial tumor involving left lower lobe and malignant left-sided pleural effusion, status post left-sided pigtail chest tube catheter placement on 05/16/2019 2 history of underlying COPD, presently inactive. 3. Pre-Renal azotemia, most likely secondary to diuretics. 4 new-onset atrial fibrillation with RVR, being addressed by cardiology on the case 5 known history of coronary artery disease with previous stenting of the circumflex artery. 6 ex-smoker, quit smoking 4 months ago. 7 severe osteoarthritis of both hips 8 possible non-ST elevation myocardial infarction Plan: Continue encouraging deep breathing and coughing, incentive spirometer to bedside, continue with nebulized bronchodilators, Symbicort, IV steroids and e mpiric antibiotics, left sided chest tube draining thin serosanguineous output, no apparent air leak. We'll proceed with the bronchoscopy with BAL tomorrow by Dr. Hollis. This was discussed with the patient and she is agreeable to the plan I performed a history & physical examination of the patient and discussed their management with my nurse practitioner, Dinah Laguna. I reviewed the nurse pr actitioner's note and agree with the documented findings and plan of care. Lung sounds are positive for diffuse rhonchi and wheezes throughout the lung pandya. The findings and the impression was discussed with the patient. I attest to the documentation by the nurse practitioner. Time with Patient: Less than 30
--- NOTE | 2019-05-17 12:56 | P.NPCON ---
History of Present Illness - Reason for Consult acute renal failure, chronic renal failure - History of Present Illness Reason for consultation: Acute kidney injury History of present illness: Patient is a 79-year-old female seen in consultation for acute kidney injury. Patient's creatinine in April 2019 was 2.23. This admission her creatinine was 1.5 and is up to 1.73 today. Patient presented to the hospital for dyspnea. She was noted to have loculated pleural effusion and a chest tube placed. Du ring her admission in April 2019 she underwent thoracentesis of the left pleural effusion as well as a bronchoscopy and endobronchial biopsy of the left lower lobe endobronchial tumor which came positive for adenocarcinoma. She is following with oncology. She has a Adams catheter in place and is nonoliguric. Denies any active chest pain or shortness of breath. Oral intake is fair. Patient had a bone scan done which revealed right-sided hydronephrosis as well as increased uptake of the right femur intertrochanteric region possibly due to metastatic disease. No vomiting or diarrhea. Denies use of nonsteroidals. She is maintained on torsemide orally once daily. No significant lower extremity edema. Vital signs are stable. General: The patient appeared well nourished and normally developed. HEENT: Head exam is unremarkable. Neck is without jugular venous distension. LUNGS: Lungs are clear to auscultation and percussion. Breath sounds decreased. Chest tube noted. HEART: Rate and Rhythm are regular. First and second heart sounds normal. No murmurs, rubs or gallops. ABDOMEN: Abdominal exam reveals normal bowel sounds. Non-tender and non- distended. EXTREMITITES: Trace edema. Past Medical History Past Medical History: Heart Failure, Hyperlipidemia, Hypertension, Myocardial Infarction ([place]) Additional Past Medical History / Comment(s): Lung Cancer Last Myocardial Infarction Date:: 2015 History of Any Multi-Drug Resistant Organisms: None Reported Past Surgical History: Heart Catheterization, Heart Catheterization With Stent Past Anesthesia/Blood Transfusion Reactions: No Reported Reaction Date of Last Stent Placement:: 2015 Past Psychological History: No Psychological Hx Reported Smoking Status: Current every day smoker Past Alcohol Use History: None Reported Past Drug Use History: None Reported - Past Family History Father Additional Family Medical History / Comment(s): pulmonary disease Mother Family Medical History: Cancer Additional Family Medical History / Comment(s): colon cancer Medications and Allergies Home Medications Medication Instructions Recorded Confirmed Type Acetaminophen [Tylenol Extra 1,000 mg PO Q4H PRN 05/14/19 05/14/19 History Strength] Aspirin [Adult Low Dose Aspirin EC] 81 mg PO DAILY 05/14/19 05/14/19 History Atorvastatin [Lipitor] 80 mg PO DAILY 05/14/19 05/14/19 History Budesonide-Formot 160-4.5 Mcg 1 puff INHALATION RT-BID 05/14/19 05/14/19 History [Symbicort 160-4.5 Mcg Inhaler] Calcium Carb-Vit D 250Mg-125Un 1 tab PO BID 05/14/19 05/14/19 History [Oscal 250+D] HYDROcodone/APAP 5-325MG [Mather 1 tab PO BID PRN 05/14/19 05/14/19 History 5-325] Ipratropium-Albuterol Nebulize 3 ml INHALATION RT-TID 05/14/19 05/14/19 History [Duoneb 0.5 mg-3 mg/3 ml Soln] Metoprolol Tartrate [Lopressor] 12.5 mg PO BID 05/14/19 05/14/19 History Potassium Chloride ER [K-Dur 10] 10 meq PO DAILY 05/14/19 05/14/19 History Sodium Bicarbonate Tab 650 mg PO BID 05/14/19 05/14/19 History Torsemide [Demadex] 20 mg PO DAILY 05/14/19 05/14/19 History guaiFENesin [Mucinex] 1,200 mg PO BID 05/14/19 05/14/19 History Allergies Allergy/AdvReac Type Severity Reaction Status Date / Time No Known Allergies Allergy Verified 05/14/19 09:48 Physical Exam Vitals: Vital Signs Temp Pulse Pulse Resp BP Pulse Ox 05/17/19 11:20 88 97 05/17/19 11:05 88 05/17/19 08:55 98.1 F 98 18 136/63 96 05/17/19 06:19 96 05/17/19 04:24 96 05/17/19 04:18 97 05/17/19 04:08 87 05/17/19 04:00 84 16 139/61 97 05/17/19 03:54 81 97 05/17/19 00:00 98 F 96 19 130/58 96 05/16/19 23:34 80 05/16/19 23:24 84 05/16/19 20:06 80 05/16/19 20:00 97.9 F 97 19 133/62 99 05/16/19 19:54 84 05/16/19 16:55 94 16 125/91 95 05/16/19 16:37 80 16 05/16/19 16:28 79 16 Intake and Output 05/16/19 05/17/19 05/17/19 22:59 06:59 14:59 Intake Total 240 120 Output Total 880 220 0 Balance -640 -220 120 Intake: Oral 240 120 Output: Drainage 380 20 Left Chest 380 20 Urine 500 200 0 Other: Voiding Method Indwelling Catheter Indwelling Catheter Weight 63.2 kg 63.2 kg Results - Lab Results Most recent lab results Calcium 8.6 mg/dL (8.4-10.2) 05/17/19 05:44 Magnesium 2.4 mg/dL (1.6-2.3) H 05/14/19 09:15 05/17/19 05:44 05/17/19 05:44 Assessment and Plan Plan: Assessment: 1. Acute kidney injury versus chronic kidney disease. Patient's creatinine in April 2019 was near 2.2. It was 1.5 this admission and is 1.7 today. Need to establish baseline renal function. 2. Right-sided hydronephrosis. 3. Adenocarcinoma of the lung. Oncology following. 4. Malignant pleural effusion status post chest tube placement. 5. Metabolic acidosis maintained on oral sodium bicarbonate. Stable. 6. A. fib maintained on Lopressor. HR controlled. 7. Diastolic CHF. 8. Anemia of chronic kidney disease. Rule out iron deficiency. Plan: Check urinalysis. Check renal ultrasound. Maintain Demadex 20 mg once daily. Check iron studies. Avoid nephrotoxins. Repeat electrolytes in AM. Thank you for the consultation. I will continue to follow the patient with you during her hospital stay.
[2019-05-17] MEDS: ALPRAZolam 0.25 MG TAB PO PRN (15:46)
--- NOTE | 2019-05-17 16:11 | US ---
EXAMINATION TYPE: US kidneys/renal and bladder DATE OF EXAM: 05/17/2019 COMPARISON: US April 05, 2019. CLINICAL HISTORY: [email or web address]. [email or web address] EXAM MEASUREMENTS: Right Kidney: 10.5 x 5.0 x 5.2 cm Left Kidney: 9.3 x 5.3 x 4.9 cm Right Kidney: Dilated renal pelvis/ Cortical thinning Left Kidney: 2 cysts visualized near upper pole, largest measured lateral= 3.5 x 3.5 x 3.7 cm Bladder: Pt has cath in place There is no evidence for hydronephrosis at this point in time. No nephrolithiasis is seen. Redemonst ration of simple-appearing thin-walled cysts scattered throughout left kidney. Suboptimal evaluation of bladder with Adams catheter. IMPRESSION: No hydronephrosis is evident bilaterally.
--- NOTE | 2019-05-17 16:33 | P.PN ---
Progress Note - Text Progress Note Date: 05/17/19 Chief Complaint: Short of breath Interval history: This is a pleasant 79-year-old patient of Dr. agarwal from [facility]. Patient was recently in the hospital discharged on April 10. Patient was then admitted for COPD exacerbation being a smoker and CHF exacerbation. EF is 60-65%. Chronic stable medical conditions include hypertensive heart disease, coronary artery disease with stent, hypertension, and osteoarthritis. Patient recently was due to get orthopedic surgery but this was postponed. Patient on the last admission was found to have left pleural effusion that was tapped. 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 Patient is awaiting to see oncology. Patient now presents with worsening short of breath and poor appetite and weight loss congested cough. Significant a short of breath at rest. Had a left-sided chest tube placed by radiology Today-. Chest tube is draining well. Propped up in bed. Some shortness of breath at rest. Did tolerate her diet. Dr. Hollis has decided to proceed with a bronchoscopy tomorrow. Daughters at the bedside Review of systems: Was done for constitutional, cardiovascular, GI, pulmonary. relevant finding as above Current medications are reviewed that include:: IV Zosyn, DuoNeb, IV Solu-Medrol 40 mg every 8 Physical examination: VITAL SIGNS: 97.7, 79, 18, 148/68, 95% on 7 L GENERAL: Propped up in bed, short of breath EYES: Pupils equal. Conjunctiva pale. HEENT: External appearance of nose and ears normal, oral cavity grossly normal. Decreased hearing, nasal cannula NECK: JVD unable to assess; masses not palpable. HEART: Heart sounds irregular; no edema. LUNGS: Respiratory rate increased, bilateral inspiratory and expiratory crackles , audible and some wheezing ABDOMEN: Soft, nontender, liver spleen not palpable, no masses palpable. PSYCH: Alert and oriented x3; mood and affect anxious. Investigations: White count 13.5, hemoglobin 7.9, potassium 4.5, bun 96, creatinine 1.73 Patient's BUN/creatinine was 99/1.97 on April 30 EKG tracing personally reviewed by me shows sinus tachycardia Checks x-ray film personally reviewed by me shows near whiteout of the left side Assessment: -Worsening Large left pleural effusion from underlying adenocarcinoma,, causing near whiteout of the left side, status post chest tube placement on [place] 15 -Possible underlying pneumonia -Acute hypoxic respiratory failure from above, slow to respond requiring high flow oxygen -Chronic congestive heart failure from diastolic dysfunction EF 60-65% -Hypertensive heart disease -Acute COPD exacerbation in an ex-smoker, slow to respond -Coronary artery disease with prior history of stent -Advanced primary osteoarthritis -Medical debility from underlying malignancy and multiple comorbidities -Chronic kidney disease suspect underlying nephrosclerosis, stage III -Sinus tachycardia multifactorial -Troponin leak from hemodynamic mismatch, doubt acute coronary syndrome Plan: Continue with IV antibiotics, bronchodilators, steroids. Care was discussed with the patient and 2 daughters the bedside. Prognosis remains guarded. Dr. Hollis will perform bronchoscopy tomorrow
[2019-05-17 16:48] LABS: Glucose,Whole Blood 274 mg/dL (75-99)
[2019-05-17] MEDS ORDERED: INSULIN REGULAR 100 UNIT/ML VIAL SQ ONE (17:44)
[2019-05-17] MEDS ORDERED: INSULIN ASPART (NovoLOG) 100 UNIT/ML VIAL SQ ONE (17:47)
[2019-05-17 18:37] LABS: Iron Saturation 18.35 (12.00-45.00)
[2019-05-17 19:21] LABS: Amorphous Sediment,Urine Rare /hpf; Appearance,Urine Turbid (Clear); Bacteria,Urine Occasional /hpf; Bilirubin,Urine Negative (Negative); Blood,Urine Moderate (Negative); Color,Urine Yellow; Glucose,Urine (UA) Negative (Negative); Ketones,Urine Negative (Negative); Leukocyte Esterase,Urine Moderate (Negative); Mucus,Urine Rare /hpf; Nitrite,Urine Negative (Negative); Protein,Urine Trace (Negative); RBC,Urine 53 /hpf (0-5); Specific Gravity,Urine 1.015 (1.001-1.035); Squamous Epithelial Cell,Urine 1 /hpf (0-4); Uric Acid Crystals,Urine Occasional /hpf; Urobilinogen,Urine <2.0 mg/dL (<2.0); WBC,Urine 11 /hpf (0-5)
[2019-05-17] MEDS: HYDROcodone/APAP 5-325MG 1 EACH TAB PO PRN (20:40)
[2019-05-17 21:26] LABS: Glucose,Whole Blood 284 mg/dL (75-99)
[2019-05-18] MEDS: methylPREDNISolone SOD SUCCI 40 MG/ML 1 ML VIAL IV SCH ×3 (00:51→16:49)
[2019-05-18] MEDS: PIPERACILLIN-TAZOBACTAM 3.375 GM in SODIUM CHLORIDE 0.9% 100 ML IVPB SCH ×3 (00:51→16:50)
[2019-05-18] MEDS: IPRATROPIUM-ALBUTEROL 3 ML NEB INHALATION SCH ×6 (03:08→22:51)
[2019-05-18 06:19] LABS: Anisocytosis Slight; HCT 26.6 % (34.0-46.0); HGB 8.5 gm/dL (11.4-16.0); Hypochromasia Moderate; MCH 28.3 pg (25.0-35.0); MCV 88.3 fL (80.0-100.0); Mean Platelet Volume 7.7; Platelet Count 239 k/uL (150-450); Poikilocytosis Slight; RBC 3.01 m/uL (3.80-5.40); RDW 19.1 % (11.5-15.5); WBC 13.6 k/uL (3.8-10.6)
[2019-05-18 06:37] LABS: Calcium 8.6 mg/dL (8.4-10.2); Magnesium 2.6 mg/dL (1.6-2.3); Potassium 4.3 mmol/L (3.5-5.1)
[2019-05-18] MEDS: INSULIN ASPART (NovoLOG) 100 UNIT/ML VIAL SQ SCH ×4 (07:00→21:00)
[2019-05-18 07:07] LABS: Glucose,Whole Blood 155 mg/dL (75-99)
[2019-05-18] MEDS: SYMBICORT 160-4.5 MCG INHALER INHALATION SCH ×2 (07:48→19:24)
[2019-05-18] MEDS: ALPRAZolam 0.25 MG TAB PO PRN ×3 (08:01→21:54)
[2019-05-18 11:21] LABS: Glucose,Whole Blood 190 mg/dL (75-99)
[2019-05-18] MEDS: METOPROLOL TARTRATE 25 MG TAB PO SCH ×2 (11:40→21:51)
[2019-05-18] MEDS: guaiFENesin 600 MG TABLET.ER PO SCH ×2 (11:41→21:49)
[2019-05-18] MEDS ORDERED: PROPOFOL 10 MG/ML 20 ML VIAL IV ONE (13:33)
[2019-05-18] MEDS ORDERED: MIDAZOLAM 2 MG/2 ML VIAL ONE (13:33)
[2019-05-18] MEDS ORDERED: fentaNYL (PF) 50 MCG/ML 2 ML AMP ONE (13:33)
--- NOTE | 2019-05-18 13:42 | P.PN ---
Subjective Patient is seen in follow-up for acute kidney injury. Creatinine was 2.23 in April 2019. Renal function has been relatively stable this admission with creatinine in the range of 1.5-1.7. She still has a chest tube in place. She scheduled to undergo bronchoscopy today. Urine output is good. Vital signs are stable. General: The patient appeared well nourished and normally developed. HEENT: Head exam is unremarkable. Neck is without jugular venous distension. LUNGS: Lungs are clear to auscultation and percussion. Breath sounds decreased. HEART: Rate and Rhythm are regular. First and second heart sounds normal. No murmurs, rubs or gallops. ABDOMEN: Abdominal exam reveals normal bowel sounds. Non-tender and non- distended. No evidence of peritonitis. EXTREMITITES: No clubbing, cyanosis, or edema. Objective - Vital Signs Vital signs: Vital Signs Temp 97.9 F 05/18/19 11:00 Pulse 112 H 05/18/19 11:30 Resp 18 05/18/19 11:00 BP 161/73 05/18/19 11:00 Pulse Ox 94 L 05/18/19 11:00 Intake & Output 05/17/19 05/18/19 05/18/19 18:59 06:59 18:59 Intake Total 1080 Output Total 70 730 28 Balance 1010 -730 -28 Weight 63.2 kg 64 kg Intake: Oral 1080 Output: Drainage 70 130 28 Left Chest 70 130 28 Urine 0 600 Other: Voiding Method Indwelling Catheter Indwelling Catheter # Bowel Movements 1 - Labs CBC & Chem 7: 05/18/19 06:09 05/18/19 06:09 Labs: Abnormal Lab Results - Last 24 Hours (Table) 05/17/19 05/17/19 05/17/19 Range/Units 05:44 16:39 17:37 WBC (3.8-10.6) k/uL RBC (3.80-5.40) m/uL Hgb (11.4-16.0) gm/dL Hct (34.0-46.0) % RDW (11.5-15.5) % BUN (7-17) mg/dL Creatinine (0.52-1.04) mg/dL Glucose (74-99) mg/dL POC Glucose (mg/dL) 274 H (75-99) mg/dL Magnesium (1.6-2.3) mg/dL Iron 40 L (50-170) ug/dL TIBC 218 L (228-460) ug/dL Ferritin 2188.2 H (10.0-291.0) ng/mL Urine Appearance Turbid H (Clear) Urine Protein Trace H (Negative) Urine Blood Moderate H (Negative) Ur Leukocyte Esterase Moderate H (Negative) Urine RBC 53 H (0-5) /hpf Urine WBC 11 H (0-5) /hpf Urine WBC Clumps Few H (None) /hpf Uric Acid Crystals Occasional H (None) /hpf Amorphous Sediment Rare H (None) /hpf Urine Bacteria Occasional H (None) /hpf Urine Mucus Rare H (None) /hpf 05/17/19 05/18/19 05/18/19 Range/Units 21:23 06:09 06:09 WBC 13.6 H (3.8-10.6) k/uL RBC 3.01 L (3.80-5.40) m/uL Hgb 8.5 L (11.4-16.0) gm/dL Hct 26.6 L (34.0-46.0) % RDW 19.1 H (11.5-15.5) % BUN 100 H (7-17) mg/dL Creatinine 1.67 H (0.52-1.04) mg/dL Glucose 153 H (74-99) mg/dL POC Glucose (mg/dL) 284 H (75-99) mg/dL Magnesium 2.6 H (1.6-2.3) mg/dL Iron (50-170) ug/dL TIBC (228-460) ug/dL Ferritin (10.0-291.0) ng/mL Urine Appearance (Clear) Urine Protein (Negative) Urine Blood (Negative) Ur Leukocyte Esterase (Negative) Urine RBC (0-5) /hpf Urine WBC (0-5) /hpf Urine WBC Clumps (None) /hpf Uric Acid Crystals (None) /hpf Amorphous Sediment (None) /hpf Urine Bacteria (None) /hpf Urine Mucus (None) /hpf 05/18/19 05/18/19 Range/Units 07:06 11:19 WBC (3.8-10.6) k/uL RBC (3.80-5.40) m/uL Hgb (11.4-16.0) gm/dL Hct (34.0-46.0) % RDW (11.5-15.5) % BUN (7-17) mg/dL Creatinine (0.52-1.04) mg/dL Glucose (74-99) mg/dL POC Glucose (mg/dL) 155 H 190 H (75-99) mg/dL Magnesium (1.6-2.3) mg/dL Iron (50-170) ug/dL TIBC (228-460) ug/dL Ferritin (10.0-291.0) ng/mL Urine Appearance (Clear) Urine Protein (Negative) Urine Blood (Negative) Ur Leukocyte Esterase (Negative) Urine RBC (0-5) /hpf Urine WBC (0-5) /hpf Urine WBC Clumps (None) /hpf Uric Acid Crystals (None) /hpf Amorphous Sediment (None) /hpf Urine Bacteria (None) /hpf Urine Mucus (None) /hpf Microbiology - Last 24 Hours (Table) 05/14/19 09:15 Blood Culture - Preliminary Blood No Growth after 96 hours Assessment and Plan Plan: Assessment: 1. Acute kidney injury versus chronic kidney disease. Patient's creatinine in April 2019 was near 2.2. It was 1.5 this admission and is stable at 1.67 today. Need to establish baseline renal function. Trace proteinuria on UA. 2. Right-sided hydronephrosis not noted on ultrasound on this admission. 3. Adenocarcinoma of the lung. Oncology following. 4. Malignant pleural effusion status post chest tube placement. Scheduled for bronchoscopy today. 5. Metabolic acidosis maintained on oral sodium bicarbonate. Stable. 6. A. fib maintained on Lopressor. HR controlled. 7. Diastolic CHF. 8. Anemia of chronic kidney disease. High ferritin level noted. Plan: Maintain Demadex 20 mg once daily. Avoid nephrotoxins. Repeat electrolytes in AM.
[2019-05-18] MEDS ORDERED: LIDOCAINE 2% INJ 20 MG/ML INTRATRACH ONE (13:47)
[2019-05-18] MEDS ORDERED: IV FLUID CONTINUATION 1,000 ML IV ONE (13:58)
--- NOTE | 2019-05-18 14:23 | P.PN ---
Subjective Progress Note Date: 05/18/19 Principal diagnosis: Complete opacification of the left lung secondary to progression of endobronchial tumor involving the left lower lobe and malignant left-sided pleural effusion. This is a 79-year-old female, familiar to our service, she was seen by Dr. Hollis last on 04/27/2019, patient presented at the time with cough, shortness of breath, pleural effusion, and abnormal CT of the chest. Patient underwent thoracentesis of the left pleural effusion, she underwent a bronchoscopy and endobronchial biopsy of left lower lobe endobronchial tumor, and the diagnosis was confirmed as adenocarcinoma. Patient was referred to see the oncologist, and her appointment is pending. She was also supposed to see Dr. Hollis in the office however she was notified over the phone about her diagnosis and about the plans to refer her to oncology. Patient has not been seen by oncology yet. Patient came into the ER complaining of increased shortness of breath, which has been progressively worse since her last admission. Upon evaluation in the ER, her left lung was noted to be completely opacified. And based on the clinical history and based on the chest x-ray, I believe the patient clearly has opacification of the left lung secondary to endobronchial tumor involving the left lower lobe bronchus, and good sized left pleural effusion which is suspected. Ultrasound is pending, however patient is refusing to have thoracentesis if ultrasound shows enough fluid to be drained. Apparently she had significant amount of discomfort during her last thoracentesis and at the end of the procedure she developed significant pain and discomfort in the left chest. While in the ER, and before transferring the patient to the floor, she developed an episode of atrial fibrillation with RVR, her labs showed evidence of leukocytosis with WBC count of 20.9 hemoglobin 9.9. Electrolytes were normal BUN however was 82 creatinine 1.50, BNP level was 3700, and her troponin was noted to be elevated at 0.237. Cardiology was consulted, and consultation is pending. I evaluated the patient in the ER, discussed her condition with all her family members at bedside, patient clearly refuses to have thoracentesis and I did go ahead and recommended ultrasound to be done. She may or may not re quire repeat bronchoscopy early next week. On 05/15/2019 patient seen in follow-up on selective care unit. During the night patient's breathing had worsened, and patient had to be placed on BiPAP contreras pport and she was given a dose of IV Lasix at 1:00 in the morning. Aspirin she remains on BiPAP support, with FiO2 at 55%, and her pulse ox is only 90%, she is tachycardic, she is tachypneic. Patient had declined thoracentesis previously, will discuss it with her again, she did have episode of atrial fibrillation, and sinus tachycardia. She is on antibiotic coverage in the form of Zosyn, blood culture showed no growth, we have been unable to send the sputum culture. On 05/16/2019 patient seen in follow-up on selective care unit, she is currently off the BiPAP, on 15 L per high flow nasal cannula, and her pulse ox is 100%, this can probably be weaned down, vital signs are stable, patient is breathing easier today, although her lung sounds are still diminished with some scattered rhonchi. Patient had a left-sided pigtail chest tube catheter placed by interventional radiology, and it is connected to Pleur-evac and there is approximately 300 mL of serosanguineous drainage in the Pleur-evac, it is to wall suction, with no apparent air leak. Today's labs have been reviewed, showing white blood cell count of 11.9, hemoglobin of 7.7, sodium 136, potassium is 5.0, chloride is 98, CO2 is 27, BUN is 86, creatinine is 1.67. Blood culture showed no growth at 48 hours. Chest x-ray was obtained following placement of the left-sided pigtail cath and showed near complete opacification of the left hemothorax, no pneumothorax, increased interstitium. Antibiotic coverage in the form of Zosyn, patient is on Demadex orally, she is on IV Solu-Medrol. Medical oncology is following the patient, and patient is going down for a bone scan this afternoon, MRI of the brain with contrast at a later date, if cleared by nephrology, she will also have a PET scan as outpatient for completion of staging On 05/17/2019 patient seen in follow-up on selective care unit, currently on 9 L per minute, with a pulse ox of 97%, no acute distress, breathing easier, did not require BiPAP support last night, she is afebrile, hemodynamically stable, she underwent left-sided pigtail chest tube catheter placed yesterday, and there has been of 400 mL out of the chest tube in the last 24 hours. No air leak noted, follow-up chest x-ray after the procedure showed persistent near complete opacification of the left hemothorax. but no pneumothorax. Afebrile, hemodynamically stable, but culture showed no growth, antibiotic coverage in the form of Zosyn continues. We will proceed with bronchoscopy with BAL tomorrow on 05/18/2019 The patient is seen today 05/18/2019 in follow-up in the bronchoscopy suite. She is awake and alert in no acute distress. Continues to require 9 L high flow nasal cannula. She did utilize BiPAP last evening. Maintaining O2 saturations in the 90s. She's been afebrile. Slightly tachycardic. The plan is for bronchoscopy with BAL due to opacification of the left lung. White count 13.6. Hemoglobin 8.5. Creatinine 1.67. Blood cultures reveal no growth. Objective - Vital Signs Vital signs: Vital Signs Temp 97.9 F 05/18/19 11:00 Pulse 112 H 05/18/19 11:30 Resp 18 05/18/19 11:00 BP 161/73 05/18/19 11:00 Pulse Ox 94 L 05/18/19 11:00 Intake & Output 05/17/19 05/18/19 05/18/19 18:59 06:59 18:59 Intake Total 1080 200 Output Total 70 730 28 Balance 1010 -730 172 Weight 63.2 kg 64 kg Intake: IV 200 Oral 1080 Output: Drainage 70 130 28 Left Chest 70 130 28 Urine 0 600 Other: Voiding Method Indwelling Catheter Indwelling Catheter # Bowel Movements 1 - Exam GENERAL EXAM: Alert, pleasant, 79-year-old female, on 9 l/min, in no apparent distress. HEAD: Normocephalic/atraumatic. EYES: Normal reaction of pupils, equal size. Conjunctiva pink, sclera white. NOSE: Clear with pink turbinates. THROAT: No erythema or exudates. NECK: No masses, no JVD, no thyroid enlargement, no adenopathy. CHEST: No chest wall deformity. Symmetrical expansion. LUNGS: Equal air entry with diminished breath sounds with scattered rhonchi and some wheezing CVS: Regular rate and rhythm, normal S1 and S2, no gallops, no murmurs, no rubs ABDOMEN: Soft, nontender. No hepatosplenomegaly, normal bowel sounds, no guarding or rigidity. EXTREMITIES: No clubbing, no edema, no cyanosis, 2+ pulses and upper and lower extremities. MUSCULOSKELETAL: Muscle strength and tone normal. SPINE: No scoliosis or deformity SKIN: No rashes CENTRAL NERVOUS SYSTEM: No focal deficits, tone is normal in all 4 extremities. PSYCHIATRIC: Alert and oriented -3. Appropriate affect. Intact judgment and insight. - Labs CBC & Chem 7: 05/18/19 06:09 05/18/19 06:09 Labs: Abnormal Lab Results - Last 24 Hours (Table) 05/17/19 05/17/19 05/17/19 Range/Units 05:44 16:39 17:37 WBC (3.8-10.6) k/uL RBC (3.80-5.40) m/uL Hgb (11.4-16.0) gm/dL Hct (34.0-46.0) % RDW (11.5-15.5) % BUN (7-17) mg/dL Creatinine (0.52-1.04) mg/dL Glucose (74-99) mg/dL POC Glucose (mg/dL) 274 H (75-99) mg/dL Magnesium (1.6-2.3) mg/dL Iron 40 L (50-170) ug/dL TIBC 218 L (228-460) ug/dL Ferritin 2188.2 H (10.0-291.0) ng/mL Urine Appearance Turbid H (Clear) Urine Protein Trace H (Negative) Urine Blood Moderate H (Negative) Ur Leukocyte Esterase Moderate H (Negative) Urine RBC 53 H (0-5) /hpf Urine WBC 11 H (0-5) /hpf Urine WBC Clumps Few H (None) /hpf Uric Acid Crystals Occasional H (None) /hpf Amorphous Sediment Rare H (None) /hpf Urine Bacteria Occasional H (None) /hpf Urine Mucus Rare H (None) /hpf 05/17/19 05/18/19 05/18/19 Range/Units 21:23 06:09 06:09 WBC 13.6 H (3.8-10.6) k/uL RBC 3.01 L (3.80-5.40) m/uL Hgb 8.5 L (11.4-16.0) gm/dL Hct 26.6 L (34.0-46.0) % RDW 19.1 H (11.5-15.5) % BUN 100 H (7-17) mg/dL Creatinine 1.67 H (0.52-1.04) mg/dL Glucose 153 H (74-99) mg/dL POC Glucose (mg/dL) 284 H (75-99) mg/dL Magnesium 2.6 H (1.6-2.3) mg/dL Iron (50-170) ug/dL TIBC (228-460) ug/dL Ferritin (10.0-291.0) ng/mL Urine Appearance (Clear) Urine Protein (Negative) Urine Blood (Negative) Ur Leukocyte Esterase (Negative) Urine RBC (0-5) /hpf Urine WBC (0-5) /hpf Urine WBC Clumps (None) /hpf Uric Acid Crystals (None) /hpf Amorphous Sediment (None) /hpf Urine Bacteria (None) /hpf Urine Mucus (None) /hpf 05/18/19 05/18/19 Range/Units 07:06 11:19 WBC (3.8-10.6) k/uL RBC (3.80-5.40) m/uL Hgb (11.4-16.0) gm/dL Hct (34.0-46.0) % RDW (11.5-15.5) % BUN (7-17) mg/dL Creatinine (0.52-1.04) mg/dL Glucose (74-99) mg/dL POC Glucose (mg/dL) 155 H 190 H (75-99) mg/dL Magnesium (1.6-2.3) mg/dL Iron (50-170) ug/dL TIBC (228-460) ug/dL Ferritin (10.0-291.0) ng/mL Urine Appearance (Clear) Urine Protein (Negative) Urine Blood (Negative) Ur Leukocyte Esterase (Negative) Urine RBC (0-5) /hpf Urine WBC (0-5) /hpf Urine WBC Clumps (None) /hpf Uric Acid Crystals (None) /hpf Amorphous Sediment (None) /hpf Urine Bacteria (None) /hpf Urine Mucus (None) /hpf Microbiology - Last 24 Hours (Table) 05/14/19 09:15 Blood Culture - Preliminary Blood No Growth after 96 hours Assessment and Plan Assessment: Assessment: 1 complete opacification of the left lung secondary to progression of endobronchial tumor involving left lower lobe and malignant left-sided pleural effusion, status post left-sided pigtail chest tube catheter placement on 05/16/2019 2 history of underlying COPD, presently inactive. 3. Pre-Renal azotemia, most likely secondary to diuretics. 4 new-onset atrial fibrillation with RVR, being addressed by cardiology on the case 5 known history of coronary artery disease with previous stenting of the circumflex artery. 6 ex-smoker, quit smoking 4 months ago. 7 severe osteoarthritis of both hips 8 possible non-ST elevation myocardial infarction Plan: The patient was seen and evaluated by Dr. Hollis. The plan is for bronchoscopy with BAL today. Cultures will be sent. We'll continue with her current medications. Continue to follow make further recommendations based on her clinical status. I, the cosigning physician, performed a history & physical examination of the patient. Lungs sounds are clear. Maintaining good O2 saturations in the 90s on room air. I discussed the assessment and plan of care with my nurse practitioner, Elsa Candelaria. I attest to the above note as dictated by her.
[2019-05-18] MEDS: POTASSIUM CHLORIDE ER 10 MEQ TAB.ER.PRT PO SCH (14:29)
[2019-05-18] MEDS: SODIUM BICARBONATE TAB 650 MG TAB PO SCH ×2 (14:29→21:49)
[2019-05-18] MEDS: CALCIUM CARB-VIT D 250MG-125UN 1 EACH TAB PO SCH (14:30)
[2019-05-18] MEDS: TORSEMIDE 20 MG TAB PO SCH (14:30)
[2019-05-18] MEDS: ASPIRIN 81 MG PO SCH (14:30)
[2019-05-18] MEDS: ATORVASTATIN 80 MG TAB PO SCH (14:30)
[2019-05-18] MEDS: HYDROcodone/APAP 5-325MG 1 EACH TAB PO PRN ×2 (14:45→21:50)
--- NOTE | 2019-05-18 15:43 | P.PN ---
Subjective Progress Note Date: 05/18/19 Principal diagnosis: Intractable hip pain, metastatic NSCLC In f/u pt has no acute c/o, her hip pain is stable, no other c/o. Objective - Vital Signs Vital signs: Vital Signs Temp 97.9 F 05/18/19 11:00 Pulse 104 H 05/18/19 15:28 Resp 18 05/18/19 11:00 BP 161/73 05/18/19 11:00 Pulse Ox 94 L 05/18/19 11:00 Intake & Output 05/17/19 05/18/19 05/18/19 18:59 06:59 18:59 Intake Total 1080 200 Output Total 70 730 528 Balance 1010 730 -328 Weight 63.2 kg 64 kg Intake: IV 200 Oral 1080 Output: Drainage 70 130 28 Left Chest 70 130 28 Urine 0 600 500 Other: Voiding Method Indwelling Catheter Indwelling Catheter # Bowel Movements 1 0 - Constitutional General appearance: Present: average body habitus, cooperative, no acute distress - EENT Eyes: Present: anicteric sclerae, EOMI - Respiratory Respiratory: bilateral: diminished - Cardiovascular Heart sounds: normal: S1, S2 - Peripheral edema leg Peripheral Edema: bilateral: Trace - Gastrointestinal General gastrointestinal: Present: soft - Musculoskeletal Musculoskeletal: Present: generalized weakness - Psychiatric Psychiatric: Present: A&O x's 3, appropriate affect, intact judgment & insight - Labs CBC & Chem 7: 05/18/19 06:09 05/18/19 06:09 Labs: Abnormal Lab Results - Last 24 Hours (Table) 05/17/19 05/17/19 05/17/19 Range/Units 05:44 16:39 17:37 WBC (3.8-10.6) k/uL RBC (3.80-5.40) m/uL Hgb (11.4-16.0) gm/dL Hct (34.0-46.0) % RDW (11.5-15.5) % BUN (7-17) mg/dL Creatinine (0.52-1.04) mg/dL Glucose (74-99) mg/dL POC Glucose (mg/dL) 274 H (75-99) mg/dL Magnesium (1.6-2.3) mg/dL Iron 40 L (50-170) ug/dL TIBC 218 L (228-460) ug/dL Ferritin 2188.2 H (10.0-291.0) ng/mL Urine Appearance Turbid H (Clear) Urine Protein Trace H (Negative) Urine Blood Moderate H (Negative) Ur Leukocyte Esterase Moderate H (Negative) Urine RBC 53 H (0-5) /hpf Urine WBC 11 H (0-5) /hpf Urine WBC Clumps Few H (None) /hpf Uric Acid Crystals Occasional H (None) /hpf Amorphous Sediment Rare H (None) /hpf Urine Bacteria Occasional H (None) /hpf Urine Mucus Rare H (None) /hpf 05/17/19 05/18/19 05/18/19 Range/Units 21:23 06:09 06:09 WBC 13.6 H (3.8-10.6) k/uL RBC 3.01 L (3.80-5.40) m/uL Hgb 8.5 L (11.4-16.0) gm/dL Hct 26.6 L (34.0-46.0) % RDW 19.1 H (11.5-15.5) % BUN 100 H (7-17) mg/dL Creatinine 1.67 H (0.52-1.04) mg/dL Glucose 153 H (74-99) mg/dL POC Glucose (mg/dL) 284 H (75-99) mg/dL Magnesium 2.6 H (1.6-2.3) mg/dL Iron (50-170) ug/dL TIBC (228-460) ug/dL Ferritin (10.0-291.0) ng/mL Urine Appearance (Clear) Urine Protein (Negative) Urine Blood (Negative) Ur Leukocyte Esterase (Negative) Urine RBC (0-5) /hpf Urine WBC (0-5) /hpf Urine WBC Clumps (None) /hpf Uric Acid Crystals (None) /hpf Amorphous Sediment (None) /hpf Urine Bacteria (None) /hpf Urine Mucus (None) /hpf 05/18/19 05/18/19 Range/Units 07:06 11:19 WBC (3.8-10.6) k/uL RBC (3.80-5.40) m/uL Hgb (11.4-16.0) gm/dL Hct (34.0-46.0) % RDW (11.5-15.5) % BUN (7-17) mg/dL Creatinine (0.52-1.04) mg/dL Glucose (74-99) mg/dL POC Glucose (mg/dL) 155 H 190 H (75-99) mg/dL Magnesium (1.6-2.3) mg/dL Iron (50-170) ug/dL TIBC (228-460) ug/dL Ferritin (10.0-291.0) ng/mL Urine Appearance (Clear) Urine Protein (Negative) Urine Blood (Negative) Ur Leukocyte Esterase (Negative) Urine RBC (0-5) /hpf Urine WBC (0-5) /hpf Urine WBC Clumps (None) /hpf Uric Acid Crystals (None) /hpf Amorphous Sediment (None) /hpf Urine Bacteria (None) /hpf Urine Mucus (None) /hpf Microbiology - Last 24 Hours (Table) 05/14/19 09:15 Blood Culture - Preliminary Blood No Growth after 96 hours Assessment and Plan (1) 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 Radiation for comfort 1st then consideration for systemic treatment Current Visit: Yes Status: Acute Code(s): C34.90 - MALIGNANT NEOPLASM OF UNSP PART OF UNSP BRONCHUS OR LUNG SNOMED Code(s): 051849733
[2019-05-18] MEDS ORDERED: INSULIN ASPART (NovoLOG) 100 UNIT/ML VIAL SQ ONE (16:40)
[2019-05-18 16:45] LABS: Glucose,Whole Blood 268 mg/dL (75-99)
[2019-05-18 17:05] LABS: Appearance,BF Cloudy; Color,BF Colorless
[2019-05-18 18:21] LABS: Nucleated Cells, Body Fluid 836 /uL; RBC, Body Fluid 276 /uL
[2019-05-18 18:25] LABS: Mononuclear WBC,Body Fluid 3 %; Polynuclear WBC,Body Fluid 95 %; Total Cells Counted,Body Fluid 100
[2019-05-18 20:59] LABS: Glucose,Whole Blood 177 mg/dL (75-99)
--- NOTE | 2019-05-19 00:22 | P.PN ---
Progress Note - Text Progress Note Date: 05/18/19 Chief Complaint: Short of breath Interval history: This is a pleasant 79-year-old patient of Dr. agarwal from [place]. Patient was recently in the hospital discharged on April 10. Patient was then admitted for COPD exacerbation being a smoker and CHF exacerbation. EF is 60-65%. Chronic stable medical conditions include hypertensive heart disease, coronary artery disease with stent, hypertension, and osteoarthritis. Patient recently was due to get orthopedic surgery but this was postponed. Patient on the last admission was found to have left pleural effusion that was tapped. 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 Patient is awaiting to see oncology. Patient now presents with worsening short of breath and poor appetite and weight loss congested cough. Significant a short of breath at rest. Had a left-sided chest tube placed by radiology Today-. Chest tube in place. Short of breath. Did tolerate some diet. Saw this patient patient was going for bronchoscopy. Review of systems: Was done for constitutional, cardiovascular, GI, pulmonary. relevant finding as above Current medications are reviewed that include:: IV Zosyn, DuoNeb, IV Solu-Medrol 40 mg every 8 Physical examination: VITAL SIGNS: 97.9, 112, 18, 161/73, 94% 9 L GENERAL: Propped up in bed, more short of breath. EYES: Pupils equal. Conjunctiva pale. HEENT: External appearance of nose and ears normal, oral cavity grossly normal. Decreased hearing, nasal cannula NECK: JVD unable to assess; masses not palpable. HEART: Heart sounds irregular; no edema. LUNGS: Excessive muscular working, Respiratory rate increased, bilateral inspiratory and expiratory crackles , e wheezing ABDOMEN: Soft, nontender, liver spleen not palpable, no masses palpable. PSYCH: Alert and oriented x3; mood and affect anxious. Investigations: White count 0.6 hemoglobin 8.5 bun 100 crit 1.67 Patient's BUN/creatinine was 99/1.97 on April 30 EKG tracing personally reviewed by me shows sinus tachycardia Checks x-ray film personally reviewed by me shows near whiteout of the left side Bone scan-shows right-sided hydronephrosis with obstruction of the right kidney, pathologic fracture of the right iliac bone also evidence of metastatic disease Assessment: -Worsening Large left pleural effusion from underlying adenocarcinoma,, causing near whiteout of the left side, status post chest tube placement on May 16 -Possible underlying pneumonia -Acute hypoxic respiratory failure from above, slow to respond r, patient became more short of breath -Chronic congestive heart failure from diastolic dysfunction EF 60-65% -Hypertensive heart disease -Acute COPD exacerbation in an ex-smoker, slow to respond -Coronary artery disease with prior history of stent -Advanced primary osteoarthritis -Medical debility from underlying malignancy and multiple comorbidities -Chronic kidney disease suspect underlying nephrosclerosis, stage III -Sinus tachycardia multifactorial -Troponin leak from hemodynamic mismatch, doubt acute coronary syndrome -Right-sided hydronephrosis obstruction right kidney -Metastatic disease causing pathologic fracture of the right iliac bone and also involvement of the right femur Plan: Patient's pending bronchoscopy today.. Overall started to decline. Continue with antibiotics, oxygen support. Prognosis not good. We'll address further after bronchoscopy.
[2019-05-19] MEDS: methylPREDNISolone SOD SUCCI 40 MG/ML 1 ML VIAL IV SCH ×2 (00:26→10:07)
[2019-05-19] MEDS: CALCIUM CARB-VIT D 250MG-125UN 1 EACH TAB PO SCH ×2 (01:37→10:06)
[2019-05-19] MEDS: PIPERACILLIN-TAZOBACTAM 3.375 GM in SODIUM CHLORIDE 0.9% 100 ML IVPB SCH ×2 (01:37→10:07)
[2019-05-19] MEDS: IPRATROPIUM-ALBUTEROL 3 ML NEB INHALATION SCH ×4 (02:35→13:10)
--- NOTE | 2019-05-19 05:08 | PCN ---
PROCEDURE NOTE PROCEDURE: Bronchoscopy, airway examination, therapeutic lavage, BAL left lower lobe. OPERATORS: Dr. Hollis and Dr. Candelaria. DESCRIPTION OF PROCEDURE: There was informed consent. There was universal timeout. The patient's procedure took place in room #1. Pankaj Ibrahim CRNA provided general anesthesia/unconscious sedation. After the patient was adequately sedated and being fully monitored, the bronchoscope was inserted through the right nostril. It passed through the right nasopharynx into the oropharynx. The hypopharynx was identified and topicalized. The hypopharyngeal structures including anterior commissure, true cords, false cords, arytenoids, piriform sinuses, right and left valleculae all appeared normal. The glottic opening was topicalized. The bronchoscope was pushed through the glottic opening into the trachea. There were thick secretions noted in the trachea. They were suctioned. Tracheal ian was sharp. Next, the right and left mainstem were topicalized. The right upper lobe and its 3 segments, right middle lobe and its 2 segments, right lower lobe and its 5 segments all appeared relatively normal save for some mild to moderate bronchitis and thick purulent looking secretions. They were suctioned. Next, the bronchoscope after topicalization of the left mainstem was taken to the left side. Left upper lobe proper and the lingula appeared relatively normal. The mucosa going into the left lower lobe was distinctly abnormal. This is the site of her prior diagnosis of lung cancer. There were thick secretions noted on the left side. They were very difficult to suction. Saline was used to suction the secretions up and a BAL was performed. The patient tolerated the procedure well. Additional saline was used to suction the additional secretions. The patient again tolerated the procedure very well and once all secretions have been removed and we obtained the BAL the bronchoscope was withdrawn and the patient will be taken back to her room once stable. Again, the patient tolerated the procedure well without difficulty. There was no immediate complication. We will speak to the daughter once we see the patient back in the room. MMODL / IJN: [id number] /
[2019-05-19] MEDS: HYDROcodone/APAP 5-325MG 1 EACH TAB PO PRN (06:56)
[2019-05-19 07:11] LABS: Glucose,Whole Blood 210 mg/dL (75-99)
[2019-05-19] MEDS: INSULIN ASPART (NovoLOG) 100 UNIT/ML VIAL SQ SCH (07:15)
[2019-05-19] MEDS: SYMBICORT 160-4.5 MCG INHALER INHALATION SCH (07:34)
[2019-05-19] MEDS: SODIUM BICARBONATE TAB 650 MG TAB PO SCH (10:05)
[2019-05-19] MEDS: ALPRAZolam 0.25 MG TAB PO PRN (10:05)
[2019-05-19] MEDS: TORSEMIDE 20 MG TAB PO SCH (10:06)
[2019-05-19] MEDS: POTASSIUM CHLORIDE ER 10 MEQ TAB.ER.PRT PO SCH (10:06)
[2019-05-19] MEDS: METOPROLOL TARTRATE 25 MG TAB PO SCH (10:06)
[2019-05-19] MEDS: ASPIRIN 81 MG PO SCH (10:06)
[2019-05-19] MEDS: guaiFENesin 600 MG TABLET.ER PO SCH (10:06)
[2019-05-19] MEDS: ATORVASTATIN 80 MG TAB PO SCH (10:06)
--- NOTE | 2019-05-19 11:04 | P.PN ---
Subjective Patient is seen in follow-up for acute kidney injury. Creatinine was 2.23 in April 2019. Renal function has been relatively stable this admission with creatinine in the range of 1.5-1.7. She still has a chest tube in place. Underwent bronchoscopy on May 18. Urine output is good. More lethargic today. Vital signs are stable. General: The patient appeared well nourished and normally developed. HEENT: Head exam is unremarkable. Neck is without jugular venous distension. LUNGS: Breath sounds decreased. Scattered rhonchi. HEART: Rate and Rhythm are regular. First and second heart sounds normal. No murmurs, rubs or gallops. ABDOMEN: Abdominal exam reveals normal bowel sounds. Non-tender and non- distended. EXTREMITITES: No clubbing, cyanosis, or edema. Objective - Vital Signs Vital signs: Vital Signs Temp 98.0 F 05/19/19 08:00 Pulse 70 05/19/19 08:00 Resp 22 05/19/19 08:00 BP 120/73 05/19/19 08:00 Pulse Ox 97 05/19/19 08:00 Intake & Output 05/18/19 05/19/19 05/19/19 18:59 06:59 18:59 Intake Total 320 120 Output Total 1028 350 0 Balance -708 -350 120 Weight 65 kg Intake: IV 200 Oral 120 120 Output: Drainage 28 0 0 Left Chest 28 0 0 Urine 1000 350 Other: Voiding Method Indwelling Catheter Indwelling Catheter Indwelling Catheter # Voids 0 # Bowel Movements 0 - Labs CBC & Chem 7: 05/18/19 06:09 05/18/19 06:09 Labs: Abnormal Lab Results - Last 24 Hours (Table) 05/18/19 05/18/19 05/18/19 Range/Units 11:19 16:39 20:58 POC Glucose (mg/dL) 190 H 268 H 177 H (75-99) mg/dL 05/19/19 Range/Units 07:10 POC Glucose (mg/dL) 210 H (75-99) mg/dL Microbiology - Last 24 Hours (Table) 05/18/19 13:00 Gram Stain - Preliminary Bronchial Washings - Left Bronchial Washings Culture - Preliminary 05/18/19 13:00 Acid Fast Bacilli Culture - Preliminary Bronchial Washings - Left 05/18/19 13:00 Fungal Culture - Preliminary Bronchial Washings - Left 05/14/19 09:15 Blood Culture - Preliminary Blood No Growth after 96 hours Assessment and Plan Plan: Assessment: 1. Acute kidney injury versus chronic kidney disease. Patient's creatinine in April 2019 was near 2.2. It was 1.5 this admission and is stable at 1.67 as of yesterday. Need to establish baseline renal function. Trace proteinuria on UA. 2. Right-sided hydronephrosis not noted on ultrasound on this admission. 3. Adenocarcinoma of the lung. Oncology following. 4. Malignant pleural effusion status post chest tube placement. Status post bronchoscopy on May 18. 5. Metabolic acidosis maintained on oral sodium bicarbonate. Stable. 6. A. fib maintained on Lopressor. HR controlled. 7. Diastolic CHF. 8. Anemia of chronic kidney disease. High ferritin level noted. Plan: Maintain Demadex 20 mg once daily. Avoid nephrotoxins. Repeat electrolytes in AM.
[2019-05-19] MEDS ORDERED: HYDROmorphone 0.5 MG/0.5 ML SYRINGE IVP PRN (11:38)
[2019-05-19 11:51] LABS: Glucose,Whole Blood 144 mg/dL (75-99)
--- NOTE | 2019-05-19 12:36 | P.PN ---
Subjective Progress Note Date: 05/19/19 Principal diagnosis: Complete opacification of the left lung secondary to progression of endobronchial tumor involving the left lower lobe and malignant left-sided pleural effusion. This is a 79-year-old female, familiar to our service, she was seen by Dr. Hollis last on 04/27/2019, patient presented at the time with cough, shortness of breath, pleural effusion, and abnormal CT of the chest. Patient underwent thoracentesis of the left pleural effusion, she underwent a bronchoscopy and endobronchial biopsy of left lower lobe endobronchial tumor, and the diagnosis was confirmed as adenocarcinoma. Patient was referred to see the oncologist, and her appointment is pending. She was also supposed to see Dr. Hollis in the office however she was notified over the phone about her diagnosis and about the plans to refer her to oncology. Patient has not been seen by oncology yet. Patient came into the ER complaining of increased shortness of breath, which has been progressively worse since her last admission. Upon evaluation in the ER, her left lung was noted to be completely opacified. And based on the clinical history and based on the chest x-ray, I believe the patient clearly has opacification of the left lung secondary to endobronchial tumor involving the left lower lobe bronchus, and good sized left pleural effusion which is suspected. Ultrasound is pending, however patient is refusing to have thoracentesis if ultrasound shows enough fluid to be drained. Apparently she had significant amount of discomfort during her last thoracentesis and at the end of the procedure she developed significant pain and discomfort in the left chest. While in the ER, and before transferring the patient to the floor, she developed an episode of atrial fibrillation with RVR, her labs showed evidence of leukocytosis with WBC count of 20.9 hemoglobin 9.9. Electrolytes were normal BUN however was 82 creatinine 1.50, BNP level was 3700, and her troponin was noted to be elevated at 0.237. Cardiology was consulted, and consultation is pending. I evaluated the patient in the ER, discussed her condition with all her family members at bedside, patient clearly refuses to have thoracentesis and I did go ahead and recommended ultrasound to be done. She may or may not re quire repeat bronchoscopy early next week. On 05/15/2019 patient seen in follow-up on selective care unit. During the night patient's breathing had worsened, and patient had to be placed on BiPAP contreras pport and she was given a dose of IV Lasix at 1:00 in the morning. Aspirin she remains on BiPAP support, with FiO2 at 55%, and her pulse ox is only 90%, she is tachycardic, she is tachypneic. Patient had declined thoracentesis previously, will discuss it with her again, she did have episode of atrial fibrillation, and sinus tachycardia. She is on antibiotic coverage in the form of Zosyn, blood culture showed no growth, we have been unable to send the sputum culture. On 05/16/2019 patient seen in follow-up on selective care unit, she is currently off the BiPAP, on 15 L per high flow nasal cannula, and her pulse ox is 100%, this can probably be weaned down, vital signs are stable, patient is breathing easier today, although her lung sounds are still diminished with some scattered rhonchi. Patient had a left-sided pigtail chest tube catheter placed by interventional radiology, and it is connected to Pleur-evac and there is approximately 300 mL of serosanguineous drainage in the Pleur-evac, it is to wall suction, with no apparent air leak. Today's labs have been reviewed, showing white blood cell count of 11.9, hemoglobin of 7.7, sodium 136, potassium is 5.0, chloride is 98, CO2 is 27, BUN is 86, creatinine is 1.67. Blood culture showed no growth at 48 hours. Chest x-ray was obtained following placement of the left-sided pigtail cath and showed near complete opacification of the left hemothorax, no pneumothorax, increased interstitium. Antibiotic coverage in the form of Zosyn, patient is on Demadex orally, she is on IV Solu-Medrol. Medical oncology is following the patient, and patient is going down for a bone scan this afternoon, MRI of the brain with contrast at a later date, if cleared by nephrology, she will also have a PET scan as outpatient for completion of staging On 05/17/2019 patient seen in follow-up on selective care unit, currently on 9 L per minute, with a pulse ox of 97%, no acute distress, breathing easier, did not require BiPAP support last night, she is afebrile, hemodynamically stable, she underwent left-sided pigtail chest tube catheter placed yesterday, and there has been of 400 mL out of the chest tube in the last 24 hours. No air leak noted, follow-up chest x-ray after the procedure showed persistent near complete opacification of the left hemothorax. but no pneumothorax. Afebrile, hemodynamically stable, but culture showed no growth, antibiotic coverage in the form of Zosyn continues. We will proceed with bronchoscopy with BAL tomorrow on 05/18/2019 The patient is seen today 05/18/2019 in follow-up in the bronchoscopy suite. She is awake and alert in no acute distress. Continues to require 9 L high flow nasal cannula. She did utilize BiPAP last evening. Maintaining O2 saturations in the 90s. She's been afebrile. Slightly tachycardic. The plan is for bronchoscopy with BAL due to opacification of the left lung. White count 13.6. Hemoglobin 8.5. Creatinine 1.67. Blood cultures reveal no growth. The patient is seen today May 19 2019 in follow-up on the selective care unit. She is currently resting in bed. She is still quite congested. Still 90 L high flow nasal cannula but is maintaining good O2 saturations in the high 90s. Currently afebrile. Hemodynamically stable. Bronchial wash cultures are pending. Remains on DuoNeb inhalations, Symbicort, IV Solu-Medrol. Antibiotics in the form of Zosyn. Objective - Vital Signs Vital signs: Vital Signs Temp 98.0 F 05/19/19 08:00 Pulse 104 H 05/19/19 11:10 Resp 22 05/19/19 08:00 BP 120/73 05/19/19 08:00 Pulse Ox 97 05/19/19 08:00 Intake & Output 05/18/19 05/19/19 05/19/19 18:59 06:59 18:59 Intake Total 320 120 Output Total 1028 350 0 Balance -708 -350 120 Weight 65 kg Intake: IV 200 Oral 120 120 Output: Drainage 28 0 0 Left Chest 28 0 0 Urine 1000 350 Other: Voiding Method Indwelling Catheter Indwelling Catheter Indwelling Catheter # Voids 0 # Bowel Movements 0 - Exam GENERAL EXAM: Alert, pleasant, 79-year-old female, on 9 L/min per nasal cannula. HEAD: Normocephalic/atraumatic. EYES: Normal reaction of pupils, equal size. Conjunctiva pink, sclera white. NOSE: Clear with pink turbinates. THROAT: No erythema or exudates. NECK: No masses, no JVD, no thyroid enlargement, no adenopathy. CHEST: No chest wall deformity. Symmetrical expansion. LUNGS: Equal air entry with diminished breath sounds with scattered rhonchi and some wheezing CVS: Regular rate and rhythm, normal S1 and S2, no gallops, no murmurs, no rubs ABDOMEN: Soft, nontender. No hepatosplenomegaly, normal bowel sounds, no guarding or rigidity. EXTREMITIES: No clubbing, no edema, no cyanosis, 2+ pulses and upper and lower extremities. MUSCULOSKELETAL: Muscle strength and tone normal. SPINE: No scoliosis or deformity SKIN: No rashes CENTRAL NERVOUS SYSTEM: No focal deficits, tone is normal in all 4 extremities. PSYCHIATRIC: Alert and oriented -3. Appropriate affect. Intact judgment and insight. - Labs CBC & Chem 7: 05/18/19 06:09 05/18/19 06:09 Labs: Abnormal Lab Results - Last 24 Hours (Table) 05/18/19 05/18/19 05/19/19 Range/Units 16:39 20:58 07:10 POC Glucose (mg/dL) 268 H 177 H 210 H (75-99) mg/dL 05/19/19 Range/Units 11:49 POC Glucose (mg/dL) 144 H (75-99) mg/dL Microbiology - Last 24 Hours (Table) 05/14/19 09:15 Blood Culture - Preliminary Blood No Growth after 120 hours 05/18/19 13:00 Gram Stain - Preliminary Bronchial Washings - Left Bronchial Washings Culture - Preliminary 05/18/19 13:00 Acid Fast Bacilli Culture - Preliminary Bronchial Washings - Left 05/18/19 13:00 Fungal Culture - Preliminary Bronchial Washings - Left Assessment and Plan Assessment: Assessment: 1 complete opacification of the left lung secondary to progression of endobronchial tumor involving left lower lobe and malignant left-sided pleural effusion, status post left-sided pigtail chest tube catheter placement on 05/16/2019, status post bronchoscopy with BAL on 05/18/2019. Cultures pending. 2 history of underlying COPD, presently inactive. 3. Pre-Renal azotemia, most likely secondary to diuretics. 4 new-onset atrial fibrillation with RVR, being addressed by cardiology on the case 5 known history of coronary artery disease with previous stenting of the circumflex artery. 6 ex-smoker, quit smoking 4 months ago. 7 severe osteoarthritis of both hips 8 possible non-ST elevation myocardial infarction Plan: The patient was seen and evaluated by Dr. Hollis. Bronchial wash cultures are pending. Titrate down the FiO2 as tolerated. She is anxious to go home. Her overall prognosis remains quite poor and not likely to tolerate any cancer treatment. Would recommend hospice. For now we'll continue with the current treatment plan including antibiotics, steroids, bronchodilators. I, the cosigning physician, performed a history & physical examination of the patient. Lungs sounds with bilateral scattered rhonchi and expiratory wheeze more so on the left. Maintaining good O2 saturations in the 90s on 9 L high flow nasal cannula. I discussed the assessment and plan of care with my nurse practitioner, Elsa Candelaria. I attest to the above note as dictated by her.
--- NOTE | 2019-05-19 12:52 | P.CONS ---
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 She presented during this admission for increased dyspnea and continues to have right-sided hip pain. The patient initially presented with progressive right-sided hip pain dating back several months. She was planning on undergoing a right total hip arthroplasty, when she was found to have a persistent left-sided pleural effusio n during a hospitalization at the end of April. On April 28 left-sided thoracentesis revealed 1200 cc of bloody appearing fluid, and the cytology returned positive for metastatic adenocarcinoma. A post intervention CT scan of the chest without contrast showed a small residual effusion, but there was abrupt cut off of the left lower lobe bronchus worrisome for mass lesion. There is also mediastinal adenopathy measuring up to 1.6 cm. She underwent bronchoscopy on April 29 which showed unremarkable right sided airways, within the left lower lung airway there was significant abnormal mucosa and narrowed lumen. Transbronchial biopsy revealed moderately differentiated adenocarcinoma with 5% PDL1 positivity. the patient felt much better and was discharged home. Shortly after this discharge, the patient developed progressive worsening dyspnea. she was readmitted on May 14 and found to be in atrial fibrillation with rapid response with elevation of troponin. A repeat chest x-ray revealed complete left hemithorax opacification. The patient had a chest tube placed, and has continued to have persistent output of blood tinged fluid. She underwent a bone scan on May 16 which did show increased activity in the right iliac area as well as the right intertrochanteric femur. At the time of our discussion, the patient is still in respiratory distress requiring 9 L of high flow oxygen. She underwent bronchoscopy yesterday which did not show endobronchial obstruction of the left lung, however there were thick secretions which were cleared. She reports that while lying flat she has no significant hip pain. However, at home prior to admission, she had significant difficulty with ambulation due to right hip pain, and it is bothersome when she sits on the side of the bed. Review of Systems Constitutional: Denies chills, Denies fever Eyes: denies blurred vision Ears: deny: decreased hearing Ears, nose, mouth and throat: Denies headache Cardiovascular: Reports dyspnea on exertion, Denies chest pain Respiratory: Reports cough, Reports dyspnea, Reports wheezing Gastrointestinal: Denies abdominal pain, Denies bloating Genitourinary: Denies flank pain Integumentary: Denies rash Neurological: Denies convulsions, Denies double vision Psychiatric: Denies confusion Past Medical History Past Medical History: Heart Failure, Hyperlipidemia, Hypertension, Myocardial Infarction (NH) Additional Past Medical History / Comment(s): Lung Cancer Last Myocardial Infarction Date:: 2015 History of Any Multi-Drug Resistant Organisms: None Reported Past Surgical History: Heart Catheterization, Heart Catheterization With Stent Past Anesthesia/Blood Transfusion Reactions: No Reported Reaction Date of Last Stent Placement:: 2015 Past Psychological History: No Psychological Hx Reported Smoking Status: Current every day smoker Past Alcohol Use History: None Reported Past Drug Use History: None Reported - Past Family History Father Additional Family Medical History / Comment(s): pulmonary disease Mother Family Medical History: Cancer Additional Family Medical History / Comment(s): colon cancer Medications and Allergies Home Medications Medication Instructions Recorded Confirmed Type Acetaminophen [Tylenol Extra 1,000 mg PO Q4H PRN 05/14/19 05/14/19 History Strength] Aspirin [Adult Low Dose Aspirin EC] 81 mg PO DAILY 05/14/19 05/14/19 History Atorvastatin [Lipitor] 80 mg PO DAILY 05/14/19 05/14/19 History Budesonide-Formot 160-4.5 Mcg 1 puff INHALATION RT-BID 05/14/19 05/14/19 History [Symbicort 160-4.5 Mcg Inhaler] Calcium Carb-Vit D 250Mg-125Un 1 tab PO BID 05/14/19 05/14/19 History [Oscal 250+D] HYDROcodone/APAP 5-325MG [Ferron 1 tab PO BID PRN 05/14/19 05/14/19 History 5-325] Ipratropium-Albuterol Nebulize 3 ml INHALATION RT-TID 05/14/19 05/14/19 History [Duoneb 0.5 mg-3 mg/3 ml Soln] Metoprolol Tartrate [Lopressor] 12.5 mg PO BID 05/14/19 05/14/19 History Potassium Chloride ER [K-Dur 10] 10 meq PO DAILY 05/14/19 05/14/19 History Sodium Bicarbonate Tab 650 mg PO BID 05/14/19 05/14/19 History Torsemide [Demadex] 20 mg PO DAILY 05/14/19 05/14/19 History guaiFENesin [Mucinex] 1,200 mg PO BID 05/14/19 05/14/19 History Allergies Allergy/AdvReac Type Severity Reaction Status Date / Time No Known Allergies Allergy Verified 05/14/19 09:48 Physical Exam Vitals: Vital Signs Temp Pulse Pulse Resp BP BP Pulse Ox 05/19/19 11:10 104 H 05/19/19 11:02 106 H 05/19/19 08:00 98.0 F 70 22 120/73 97 05/19/19 07:45 110 H 05/19/19 07:36 108 H 05/19/19 04:00 97.8 F 68 20 127/76 98 05/19/19 02:47 116 H 20 05/19/19 02:35 110 H 18 05/19/19 00:00 98.2 F 98 20 104/65 94 L 05/18/19 23:03 111 H 20 05/18/19 22:51 115 H 20 05/18/19 20:00 98.4 F 104 H 18 141/71 98 05/18/19 19:39 115 H 05/18/19 19:27 113 H 94 L 05/18/19 16:30 97.7 F 108 H 18 101/49 96 05/18/19 15:28 104 H 05/18/19 15:18 98 Intake and Output 05/18/19 05/19/19 05/19/19 22:59 06:59 14:59 Intake Total 120 120 Output Total 1000 350 0 Balance -880 -350 120 Intake: Oral 120 120 Output: Drainage 0 0 Left Chest 0 0 Urine 1000 350 Other: Voiding Method Indwelling Catheter Indwelling Catheter Indwelling Catheter # Voids 0 # Bowel Movements 0 Weight 65 kg - Constitutional General appearance: mild distress - EENT Eyes: EOMI, PERRLA ENT: hearing grossly normal - Neck Neck: no lymphadenopathy - Respiratory Respiratory: right: wheezing, left: dullness, rhonchi - Cardiovascular Rhythm: regular - Gastrointestinal General gastrointestinal: no distended - Integumentary Integumentary: no calor - Neurologic Neurologic: CNII-XII intact - Psychiatric Psychiatric: A&O x's 3, appropriate affect Results CBC & Chem 7: 05/18/19 06:09 05/18/19 06:09 Labs: Abnormal Lab Results - Last 24 Hours (Table) 05/18/19 05/18/19 05/19/19 Range/Units 16:39 20:58 07:10 POC Glucose (mg/dL) 268 H 177 H 210 H (75-99) mg/dL 05/19/19 Range/Units 11:49 POC Glucose (mg/dL) 144 H (75-99) mg/dL Microbiology - Last 24 Hours (Table) 05/14/19 09:15 Blood Culture - Preliminary Blood No Growth after 120 hours 05/18/19 13:00 Gram Stain - Preliminary Bronchial Washings - Left Bronchial Washings Culture - Preliminary 05/18/19 13:00 Acid Fast Bacilli Culture - Preliminary Bronchial Washings - Left 05/18/19 13:00 Fungal Culture - Preliminary Bronchial Washings - Left Chest x-ray: report reviewed, image reviewed CT scan - chest: report reviewed, image reviewed Assessment and Plan Plan: The patient is a 79-year-old female with a history of recently diagnosed 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 She presented during this admission for increased dyspnea and continues to have right-sided hip pain. 1. Dyspnea: Despite bronchoscopy, the patient continues to have significant dyspnea at rest requiring 9 L of high flow oxygen. She currently has a chest tube in place with persistent output. During a previous admission, the patient's breathing improved markedly after thoracentesis. She has not had significant response to the insertion of a chest tube. She does appear in mild respiratory distress, with some accessory muscle use. As detailed in the bronchoscopy note, the patient does not appear to have significant endobronchial disease resulting in left lung collapse. There is some narrowing of the left lower lobe airways, but she does not appear to have central disease amenable to radiotherapy. 2. Bone Metastases: Likely site of bone metastatic disease in the right hip. This has not been imaged with a CT scan however. The patient is not currently having right hip pain, but she is mostly lying in bed. She was previously having significant pain at home with any type of ambulation, or even sitting up in bed. I discussed with the patient that the #1 priority at this time was improving her respiratory distress. I discussed that if she improved symptomatically from her dyspnea, it would be reasonable to consider her for a short course of palliative radiotherapy to the right hip. At the current time I did not think the patient would tolerate being moved outside the hospital for her treatment, and I do not feel it would be safe to have her off of the floor. We will continue to follow along during this hospitalization. 3. Stage IV Adenocarcinoma of the lun% PDL1. The patient currently has a poor performance status due to her respiratory distress. If this is improving, further treatments may be considered. Time with Patient: Greater than 30
[2019-05-19 13:22] VITALS: PULSE 120
[2019-05-19 13:59] VITALS: BP 167/81; RESP 26; TEMP 97.5
--- NOTE | 2019-05-20 14:56 | PCN ---
PROCEDURE NOTE ADDENDUM: INDICATION: For the bronchoscopy airway examination and therapeutic lavage of the left lower lobe was that complete opacification of the left lung with secondary to progression of endobronchial tumor involving the left lower lobe as well as malignant left-sided pleural effusion. PREOPERATIVE DIAGNOSIS: Extensive tumor completely obstructing the left lower lobe bronchus. POSTOPERATIVE DIAGNOSIS: Extensive tumor completely obstructing the left lower lobe bronchus. MMODL / IJN: [id number] /
--- NOTE | 2019-05-23 22:45 | P.DS ---
Providers Date of admission: 05/14/19 11:44 Expected date of discharge: 05/19/19 Attending physician: Nawaf Cardozo Consults: 05/14/19 11:44 Consult Physician Routine Consulting Provider: Juan Sanders Consult Reason/Comments: Left lung cancer, CHF and COPD exacerbation Do you want consulting provider notified?: Yes Consult Physician Routine Consulting Provider: Froy Pérez Consult Reason/Comments: Left lung cancer Do you want consulting provider notified?: Yes Consult Physician Urgent Consulting Provider: Antwon Ramirez Consult Reason/Comments: Elevated troponin without chest pain or EKG changes, acute kidney injury, l Do you want consulting provider notified?: Yes 05/17/19 08:51 Consult Physician Routine Consulting Provider: Maryjo Daniels Consult Reason/Comments: ELMER,CKD Do you want consulting provider notified?: Yes 05/18/19 08:47 Consult Physician Routine Consulting Provider: Germán Celestin Consult Reason/Comments: rt iliac, poss femur mets, pain, lung ca Do you want consulting provider notified?: Yes Primary care physician: Stated None Hospital Course: Hospital course: This is a pleasant 79-year-old patient of Dr. agarwal from [facility]. Patient was recently in the hospital discharged on April 10. Patient was then admitted for COPD exacerbation being a smoker and CHF exacerbation. EF is 60-65%. Chronic stable medical conditions include hypertensive heart disease, coronary artery disease with stent, hypertension, and osteoarthritis. Patient recently was due to get orthopedic surgery but this was postponed. Patient on the last admission was found to have left pleural effusion that was tapped. 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 Patient is awaiting to see oncology. Patient now presents with worsening short of breath and poor appetite and weight loss congested cough. Significant a short of breath at rest. Had a left-sided chest tube placed by radiology. Did undergo bronchoscopy Patient continued to do poorly. Discussed with daughter. Patient be accepted into inpatient GIP for hospice Consultation: Dr. Capone from pulmonary Dr. Pérez from oncology Physical examination: Respiratory-short of breath at rest with accessory muscles working Increased breath sounds, very crackles Lethargic Investigations: White count 0.6 hemoglobin 8.5 bun 100 crit 1.67 Patient's BUN/creatinine was 99/1.97 on April 30 EKG tracing personally reviewed by me shows sinus tachycardia Checks x-ray film personally reviewed by me shows near whiteout of the left side Bone scan-shows right-sided hydronephrosis with obstruction of the right kidney, pathologic fracture of the right iliac bone also evidence of metastatic disease Final diagnosis: -Worsening Large left pleural effusion from underlying adenocarcinoma,, causing near whiteout of the left side, status post chest tube placement on May 16 -Possible underlying pneumonia -Acute hypoxic respiratory failure from above, slow to respond r, patient became more short of breath -Chronic congestive heart failure from diastolic dysfunction EF 60-65% -Hypertensive heart disease -Acute COPD exacerbation in an ex-smoker, slow to respond -Coronary artery disease with prior history of stent -Advanced primary osteoarthritis -Medical debility from underlying malignancy and multiple comorbidities -Chronic kidney disease suspect underlying nephrosclerosis, stage III -Sinus tachycardia multifactorial -Troponin leak from hemodynamic mismatch, doubt acute coronary syndrome -Right-sided hydronephrosis obstruction right kidney -Metastatic disease causing pathologic fracture of the right iliac bone and also involvement of the right femur Plan: GIP/hospice in the hospital for symptom control Patient Condition at Discharge: Poor Plan - Discharge Summary Discharge Rx Participant: Yes Follow up Appointment(s)/Referral(s): None,Stated [Primary Care Provider] - 1-2 days Discharge Disposition: DISCH TO [facility]
--- NOTE | 2019-05-23 22:47 | P.EN ---
Date of service: 05/19/2019 Advanced care planning: Had a family meeting with patient's daughter and other family members. Patient's overall poor prognosis was discussed. Patient's rapidly failing. Very short of breath. Lethargic. They understand that the patient is rapidly going downhill. They wished the patient to be kept comfortable. No artificial feeding is to be done. It was discussed to stop all the medications. Except to keep the patient comfortable. Hospice is being consulted. Patient should qualify for GIP. Other questions were answered. Total time spent was about 25 minutes
== END 2019-05-19 14:04 | disposition hospice, inpatient (51) | DRG 166 ==
LOC: EC 08:48 → 3SCARD 11:44
PROVIDERS: ADMIT Hospitalist; ATTEND Hospitalist
PROC: 0W9B30Z Drainage of Left Pleural Cavity with Drainage Device, Percutaneous Approach (ICD-10-PCS; 2019-05-18)
PROC: 0B9J8ZX Drainage of Left Lower Lung Lobe, Via Natural or Artificial Opening Endoscopic, Diagnostic (ICD-10-PCS; 2019-05-18)
PROC: 0B9J8ZZ Drainage of Left Lower Lung Lobe, Via Natural or Artificial Opening Endoscopic (ICD-10-PCS; principal; 2019-05-18 13:20)
DX: C34.32 Malignant neoplasm of lower lobe, left bronchus or lung (principal); J96.01 Acute respiratory failure with hypoxia; J18.9 Pneumonia, unspecified organism; N17.9 Acute kidney failure, unspecified; J91.0 Malignant pleural effusion; C79.51 Secondary malignant neoplasm of bone; E87.2 Acidosis; I13.0 Hypertensive heart and chronic kidney disease with heart failure and stage 1 through stage 4 chronic kidney disease, or unspecified chronic kidney disease; I50.32 Chronic diastolic (congestive) heart failure; N13.30 Unspecified hydronephrosis; J44.1 Chronic obstructive pulmonary disease with (acute) exacerbation; J94.2 Hemothorax; M84.551A Pathological fracture in neoplastic disease, right femur, initial encounter for fracture; M84.550A Pathological fracture in neoplastic disease, pelvis, initial encounter for fracture; I48.91 Unspecified atrial fibrillation; R13.10 Dysphagia, unspecified; D63.1 Anemia in chronic kidney disease; N18.3 Chronic kidney disease, stage 3 (moderate); D72.829 Elevated white blood cell count, unspecified; E78.5 Hyperlipidemia, unspecified; I25.10 Atherosclerotic heart disease of native coronary artery without angina pectoris; I25.2 Old myocardial infarction; M16.0 Bilateral primary osteoarthritis of hip; T50.2X5A Adverse effect of carbonic-anhydrase inhibitors, benzothiadiazides and other diuretics, initial encounter; R59.0 Localized enlarged lymph nodes; K21.9 Gastro-esophageal reflux disease without esophagitis; R77.9 Abnormality of plasma protein, unspecified; Z79.51 Long term (current) use of inhaled steroids; Z79.82 Long term (current) use of aspirin; Z79.899 Other long term (current) drug therapy; Z95.5 Presence of coronary angioplasty implant and graft; Z87.891 Personal history of nicotine dependence; Z80.0 Family history of malignant neoplasm of digestive organs
CPT/HCPCS: 31624; 32551; 36415; 71045; 71046; 76604; 76770; 76942; 78306; 80048; 80053; 80061; 81001; 82728; 83540; 83550; 83735; 83880; 84484; 85025; 85027; 85610; 85730; 87040; 87070; 87102; 87116; 87205; 87206; 87252; 87496; 87498; 87502; 87529; 87634; 87798; 88108; 88305; 89050; 93005; 94640; 94660; 94760; 96361; 96365; 96375; 96376; 99291

== ENCOUNTER 2019-05-19 13:52 | Inpatient (IN) | payer MEDICAID ==
[2019-05-19] MEDS ORDERED: MORPHINE SULFATE 2 MG/ML SYRINGE IV PRN (13:56)
[2019-05-19] MEDS ORDERED: ATROPINE OPHTH SOLN 1% 5ML BTL SUBLINGUAL PRN (13:56)
[2019-05-19] MEDS ORDERED: MORPHINE SULFATE (100 MG/2 ML) 100 MG in SODIUM CHLORIDE 0.9% 100 ML IV SCH (14:00)
[2019-05-19] MEDS ORDERED: SCOPOLAMINE 1.5MG/72HR PATCH TRANSDERM SCH (14:00)
[2019-05-19] MEDS ORDERED: MORPHINE SULFATE 100 MG in SODIUM CHLORIDE 0.9% 90 ML IV SCH (14:15)
[2019-05-19] MEDS: LORazepam 2 MG/ML INJ IV PRN ×2 (14:18→20:39)
[2019-05-19] MEDS ORDERED: ACETAMINOPHEN SUPPOSITORY 650 MG SUPP RECTAL PRN (14:30)
[2019-05-19] MEDS ORDERED: ONDANSETRON 4 MG/2 ML VIAL IVP PRN (14:30)
[2019-05-19 15:38] VITALS: BMI 26.2
[2019-05-19] MEDS: GLYCOPYRROLATE 0.2 MG/ML 2 ML VIAL IVP SCH ×2 (18:48→23:11)
[2019-05-20 05:05] VITALS: PULSE 164; RESP 12
[2019-05-20] MEDS: GLYCOPYRROLATE 0.2 MG/ML 2 ML VIAL IVP SCH (06:02)
--- NOTE | 2019-05-24 02:37 | DS ---
DISCHARGE SUMMARY DATE OF ADMISSION: 05/19/2019. DATE PATIENT : 05/19/2019. HOSPITAL COURSE: The patient is admitted to [facility] for symptom control and symptom control management started. The patient's family was present. The patient succumbed to underlying condition and . CAUSE OF : Adenocarcinoma of the lung. OTHER MEDICAL PROBLEMS: Chronic obstructive pulmonary disease. Copy to Dr. Church,[facility]. MMODL / IJN: [id number] /
== END 2019-05-20 12:40 | disposition expired | DRG 951 ==
LOC: 3SCARD 14:10
PROVIDERS: ADMIT Hospitalist; ATTEND Hospitalist
DX: Z51.5 Encounter for palliative care (principal); J96.01 Acute respiratory failure with hypoxia; C34.90 Malignant neoplasm of unspecified part of unspecified bronchus or lung; J44.1 Chronic obstructive pulmonary disease with (acute) exacerbation; I50.32 Chronic diastolic (congestive) heart failure; I13.0 Hypertensive heart and chronic kidney disease with heart failure and stage 1 through stage 4 chronic kidney disease, or unspecified chronic kidney disease; Z66 Do not resuscitate; I25.10 Atherosclerotic heart disease of native coronary artery without angina pectoris; M19.042 Primary osteoarthritis, left hand; M19.041 Primary osteoarthritis, right hand; N18.3 Chronic kidney disease, stage 3 (moderate); R77.9 Abnormality of plasma protein, unspecified; I25.2 Old myocardial infarction; E78.5 Hyperlipidemia, unspecified; Z95.5 Presence of coronary angioplasty implant and graft; Z87.891 Personal history of nicotine dependence; Z80.0 Family history of malignant neoplasm of digestive organs; Z80.2 Family history of malignant neoplasm of other respiratory and intrathoracic organs